=== PATIENT | male | born 1955 | race Hispanic/Latino ===

== ENCOUNTER 2017-02-12 14:10 | Inpatient (IN) | payer MEDICARE ==
[2017-02-12 14:10] VITALS: BMI 18.1
[2017-02-12] MEDS ORDERED: Sodium Chloride 0.9% 1,000 ML IV ONE (15:21)
--- NOTE | 2017-02-12 15:27 | C.PDOC ---
History Of Present Illness 61 yr old male with PMHx of chronic pancreatitis, presents to the ER for evaluation of abdominal pain which started few hours ago. Patient reports he has been seen multiple times for the same symptoms in the past. Patient states the pain is worse in epigastric area. Denies drinking alcohol, fever, chills, nausea, vomiting, diarrhea, constipation, dysuria, back pain, weakness or numbness. Time Seen by Provider: 02/12/17 15:07 Chief Complaint (Nursing): Chest Pain History/Exam Limitations: no limitations Onset/Duration Of Symptoms: Sudden Onset ([facility] STRIPPER few hrs ) Past Medical History Reviewed: Historical Data, Nursing Documentation, Vital Signs Vital Signs: Last Vital Signs Temp 97.8 F 02/12/17 21:07 Pulse 62 02/12/17 21:07 Resp 20 02/12/17 21:07 BP 124/72 02/12/17 21:07 Pulse Ox 95 02/12/17 21:07 - Medical History PMH: Anxiety, Depression, HTN, Pancreatitis (Recurrent), Chronic Pain (abdominal ) - [facility] Procedures INDIVID PSYCHOTHERAP NEC (11/12/12) INJECT/INFUSE NEC (07/12/14) INSERTION OF INFUSION DEV INTO SUP VENA CAVA, PERC APPROACH (07/12/16) OTHER GROUP THERAPY (11/12/12) Family History: States: No Known Family Hx - Social History Hx Alcohol Use: No Hx Substance Use: No (cocaine & marajuana) - Immunization History Hx Tetanus Toxoid Vaccination: No Hx Influenza Vaccination: Yes (2016) Hx Pneumococcal Vaccination: Yes (2016) Review Of Systems Except As Marked, All Systems Reviewed And Found Negative. Constitutional: Negative for: Fever, Chills Gastrointestinal: Positive for: Abdominal Pain (epigastric ). Negative for: Nausea, Vomiting, Diarrhea, Constipation Musculoskeletal: Negative for: Back Pain Neurological: Negative for: Weakness, Numbness Physical Exam - Physical Exam Appears: Non-toxic, No Acute Distress Skin: Warm, Dry, No Rash Head: Atraumatic, Normacephalic Oral Mucosa: Moist Chest: Symmetrical, No Tenderness Cardiovascular: Rhythm Regular, No Murmur Respiratory: Normal Breath Sounds, No Rales, No Rhonchi, No Stridor, No Wheezing Gastrointestinal/Abdominal: Soft, Tenderness (Mild epigastric ), No Guarding, No Rebound ED Course And Treatment - Laboratory Results Result Diagrams: 02/12/17 16:08 02/12/17 16:08 ECG: Interpreted By Me, Viewed By Me ECG Rhythm: Sinus Rhythm ECG Interpretation: Normal Interpretation Of ECG: No ST/T wave changes. Rate From EC (BPM) - CT Scan/US CT - Abd & Pelvis Other Rad Studies (CT/US): Read By Radiologist, Radiology Report Reviewed CT/US Interpretation: PROCEDURE: CT Abdomen and Pelvis with contrast. HISTORY : abd pain h/o of pancreatitis. COMPARISON: None available. TECHNIQUE: Contrast dose: 100 mL Omnipaque. Radiation dose: Total exam DLP = 313.29 mGy- cm. This CT exam was performed using one or more of the following dose reduction techniques: Automated exposure control, adjustment of the mA and/or kV according to patient size, and/or use of iterative reconstruction technique. FINDINGS: LOWER THORAX: No visible consolidation, pleural effusion, or pneumothorax. Marked distal esophageal wall thickening. LIVER: Hypoattenuation of the liver compatible with hepatic steatosis. GALLBLADDER AND BILE DUCTS: Unremarkable. PANCREAS: Several pancreatic calcifications particularly evident within the region of the pancreatic head/uncinate ; consistent with provided history of chronic pancreatitis. No peripancreatic fluid collection or inflammatory stranding evident. The pancreatic duct appears mildly prominent ; further evaluation with MRCP suggested if indicated. SPLEEN : Unremarkable. ADRENALS: Indeterminate 11 x 11 mm left adrenal gland nodule. 11 x 9 mm right adrenal gland nodule, indeterminate. KIDNEYS AND URETERS: The kidneys enhance symmetrically. No hydronephrosis or obstructing calculus identified. Too small to characterize 4 mm hypodensity, right midpole. VASCULATURE: Atherosclerotic calcifications of the aorta. No aortic aneurysm. BOWEL: Stomach is nondistended. Lack of oral contrast limits evaluation for bowel pathology. Bowel loops appear within normal limits of caliber without evidence of obstruction. APPENDIX: The appendix appears within normal limits of caliber. No secondary signs of acute appendicitis. PERITONEUM: No significant free fluid. No definite free air. LYMPH NODES: No bulky adenopathy identified. BLADDER: Markedly thick-walled under distended urinary bladder. REPRODUCTIVE: The prostate gland measures approximately 4.0 x 4.9 cm. BONES: Mild degenerative changes of the spine. OTHER FINDINGS: None. IMPRESSION: Several pancreatic calcifications particularly evident within the region of the pancreatic head/uncinate ; consistent with provided history of chronic pancreatitis. No peripancreatic fluid collection or inflammatory stranding evident. The pancreatic duct appears mildly prominent ; further evaluation with MRCP suggested if indicated. Bilateral 11 mm indeterminate adrenal gland nodules. Dedicated outpatient cross-sectional imaging may be considered for further characterization if indicated. Under distended but markedly thickened urinary bladder. Recommend correlation with urinalysis. Considerations include chronic outflow obstruction, infection, inflammatory or neoplastic process. Extent of wall thickening may be exaggerated by under distension. Follow-up as indicated. Enlarged prostate gland. Recommend correlation with PSA. Markedly thickened distal esophageal wall suboptimally evaluated by CT ; correlate clinically. Considerations include but not limited to infectious, inflammatory, or neoplastic etiologies. Follow-up as indicated. Too small to characterize 4 mm hypodensity, right renal midpole. Hepatic steatosis. Additional incidental findings as above. Medical Decision Making Medical Decision Making: PLAN: * CT - Abd & Pelvis * CXR * EKG * Alcohol Serum * CBC * CMP * Urinalysis * Toradol IVP * Sodium Chloride IV lipase eleaveted. h/o of chronic pancreatitis. pt accepted by dr cisse for admission. Disposition - Disposition Disposition: HOSPITALIZED Disposition Time: 07:00 Condition: GOOD - Clinical Impression Clinical Impression: Pancreatitis - Scribe Statement The provider has reviewed the documentation as recorded by the Jasper Hartmann Provider Attestation: All medical record entries made by the Jasper were at my direction and personally dictated by me. I have reviewed the chart and agree that the record accurately reflects my personal performance of the history, physical exam, medical decision making, and the department course for this patient. I have also personally directed, reviewed, and agree with the discharge instructions and disposition. Decision To Admit - Pt Status Changed To: Hospital Disposition Of: Inpatient - Admit Certification Admit to Inpatient:: After my assessment, the patient will require hospitalization for at least two midnights. This is because of the severity of symptoms shown, intensity of services needed, and/or the medical risk in this patient being treated as an outpatient. - InPatient: Physician Admission Certification: I certify that this patient requires 2 or more midnights of care for the following reason:: pancreatitis, needs bowel rest - . Bed Request Type: Regular Admitting Physician: Dorene Cisse Patient Diagnosis: Pancreatitis
--- NOTE | 2017-02-12 15:37 | RAD ---
HISTORY: abd pain COMPARISON: No prior. FINDINGS: LUNGS: No active pulmonary disease. PLEURA: No significant pleural effusion identified, no pneumothorax apparent. CARDIOVASCULAR: Normal. OSSEOUS STRUCTURES: No significant abnormalities. VISUALIZED UPPER ABDOMEN: Normal. OTHER FINDINGS: None. IMPRESSION: No active disease.
[2017-02-12] MEDS ORDERED: Sodium Chloride 0.9% 1,000 ML ONE (15:52)
[2017-02-12 16:15] LABS: BASO # 0.1 K/uL (0.0-0.2); EOS % 0.5 % (0.0-4.0); HEMATOCRIT 42.9 % (35.0-51.0); LYMPH # 1.8 K/uL (1.0-4.3); LYMPH % 21.5 % (20.0-40.0); MEAN CELL VOLUME 94.8 fL (80.0-94.0); MEAN CORPUSCULAR HEMOGLOBIN 32.7 pg (27.0-31.0); MEAN CORPUSCULAR HGB CONC 34.5 g/dL (33.0-37.0); MEAN PLATELET VOLUME 7.8 fL (7.2-11.7); MONO # 0.5 K/uL (0.0-0.8); MONO % 5.9 % (0.0-10.0); NRBC % 0.1 % (0.0-2.0); RED CELL DISTRIBUTION WIDTH 13.7 % (11.5-14.5); WHITE BLOOD COUNT 8.2 K/uL (4.8-10.8)
[2017-02-12 16:21] LABS: INR 1.1
[2017-02-12 16:22] LABS: CHLORIDE 105 mmol/L (98-107); POTASSIUM 4.7 mmol/L (3.6-5.2); SODIUM 143 mmol/L (132-148)
[2017-02-12 16:24] LABS: GFR AFRICAN-AMERICAN > 60
[2017-02-12 16:25] LABS: ALB/GLOB RATIO 1.6 (1.0-2.1); ALKALINE PHOSPHATASE 66 U/L (38-126); ALT/SGPT 27 U/L (21-72); AST/SGOT 28 U/L (17-59); BILIRUBIN,TOTAL 0.8 mg/dL (0.2-1.3); BLOOD UREA NITROGEN 17 mg/dL (9-20); CALCIUM 9.8 mg/dl (8.6-10.4); CARBON DIOXIDE 25 mmol/L (22-30); GLUCOSE,RANDOM 78 mg/dL (75-110); TOTAL PROTEIN 7.6 g/dL (6.3-8.3)
[2017-02-12 16:26] LABS: ALCOHOL SERUM < 10 mg/dl (0-10)
[2017-02-12 16:39] LABS: RBC URINE < 1 /hpf (0-3); URINE BACTERIA RARE (<OCC); URINE BILIRUBIN NEGATIVE (NEGATIVE); URINE BLOOD NEGATIVE (NEGATIVE); URINE COLOR Yellow (YELLOW); URINE GLUCOSE (UA) NORMAL (Normal); URINE KETONE NEGATIVE (NEGATIVE); URINE LEUKOCYTE ESTERASE NEG Leu/uL (Negative); URINE PROTEIN NEGATIVE (NEGATIVE); URINE UROBILINOGEN NORMAL mg/dL (0.2-1.0); WBC URINE 2 /hpf (0-5)
[2017-02-12] MEDS ORDERED: Iohexol 300 100 ML IJ ONE (16:54)
--- NOTE | 2017-02-12 18:09 | CT ---
PROCEDURE: CT Abdomen and Pelvis with contrast HISTORY: abd pain h/o of pancreatitis COMPARISON: None available. TECHNIQUE: Contrast dose: 100 mL Omnipaque Radiation dose: Total exam DLP = 313.29 mGy-cm. This CT exam was performed using one or more of the following dose reduction techniques: Automated exposure control, adjustment of the mA and/or kV according to patient size, and/or use of iterative reconstruction technique. FINDINGS: LOWER THORAX: No visible consolidation, pleural effusion, or pneumothorax. Marked distal esophageal wall thickening. LIVER: Hypoattenuation of the liver compatible with hepatic steatosis. GALLBLADDER AND BILE DUCTS: Unremarkable. PANCREAS: Several pancreatic calcifications particularly evident within the region of the pancreatic head/uncinate ; consistent with provided history of chronic pancreatitis. No peripancreatic fluid collection or inflammatory stranding evident. The pancreatic duct appears mildly prominent ; further evaluation with MRCP suggested if indicated. SPLEEN: Unremarkable. ADRENALS: Indeterminate 11 x 11 mm left adrenal gland nodule. 11 x 9 mm right adrenal gland nodule, indeterminate. KIDNEYS AND URETERS: The kidneys enhance symmetrically. No hydronephrosis or obstructing calculus identified. Too small to characterize 4 mm hypodensity, right midpole. VASCULATURE: Atherosclerotic calcifications of the aorta. No aortic aneurysm. BOWEL: Stomach is nondistended. Lack of oral contrast limits evaluation for bowel pathology. Bowel loops appear within normal limits of caliber without evidence of obstruction. APPENDIX: The appendix appears within normal limits of caliber. No secondary signs of acute appendicitis. PERITONEUM: No significant free fluid. No definite free air. LYMPH NODES: No bulky adenopathy identified. BLADDER: Markedly thick-walled under distended urinary bladder. REPRODUCTIVE: The prostate gland measures approximately 4.0 x 4.9 cm. BONES: Mild degenerative changes of the spine. OTHER FINDINGS: None. IMPRESSION: Several pancreatic calcifications particularly evident within the region of the pancreatic head/uncinate ; consistent with provided history of chronic pancreatitis. No peripancreatic fluid collection or inflammatory stranding evident. The pancreatic duct appears mildly prominent ; further evaluation with MRCP suggested if indicated. Bilateral 11 mm indeterminate adrenal gland nodules. Dedicated outpatient cross-sectional imaging may be considered for further characterization if indicated. Under distended but markedly thickened urinary bladder. Recommend correlation with urinalysis. Considerations include chronic outflow obstruction, infection, inflammatory or neoplastic process. Extent of wall thickening may be exaggerated by under distension. Follow-up as indicated. Enlarged prostate gland. Recommend correlation with PSA. Markedly thickened distal esophageal wall suboptimally evaluated by CT ; correlate clinically. Considerations include but not limited to infectious, inflammatory, or neoplastic etiologies. Follow-up as indicated. Too small to characterize 4 mm hypodensity, right renal midpole. Hepatic steatosis. Additional incidental findings as above.
[2017-02-12] MEDS ORDERED: Morphine 4 MG/ML VIAL ONE (18:23)
[2017-02-12] MEDS ORDERED: HYDROmorphone 0.5 mg/0.5 ml ISec IVP PRN (19:45)
[2017-02-12] MEDS ORDERED: Dextrose 5%/0.9% NS 1,000 ML IV ONE ×2 (19:47→19:54)
[2017-02-12] MEDS ORDERED: HYDROmorphone 0.5 mg/0.5 ml ISec IVP STA (19:49)
[2017-02-12] MEDS ORDERED: HYDROmorphone 0.5 mg/0.5 ml ISec ONE (19:53)
[2017-02-12] MEDS ORDERED: Pneumococcal 23-Valent Vaccine IM ONE (22:17)
[2017-02-12] MEDS ORDERED: Influenza Virus Vaccine (Afluria Inactive dont use ) IM ONE (22:17)
[2017-02-13] MEDS: HYDROmorphone 0.5 mg/0.5 ml ISec IVP PRN ×6 (00:37→20:43)
[2017-02-13] MEDS: Enoxaparin 30 mg Syringe SC SCH (09:51)
--- NOTE | 2017-02-13 10:44 | CP.PCM.CON ---
<Jose C Cartagena - Last Filed: 02/13/17 13:18> History of Present Illness - History of Present Illness History of Present Illness: PGY5 GI Fellow Consult Note Patient is a 61yo male with PMHx significant for EtOH abuse, polysubstance abuse , tobacco abuse, chronic pancreatitis who presented to the ED with abdominal pain. Pt states pain began suddenly yesterday without any obvious preceding cause. He vehemently denies any EtOH use recently and states his last drink was one year ago despite lab work showing EtOH in his system one month ago. Pain is improved overall since admission but was previously located in the epigastrium and radiated to both flanks. Denies any change in bowel habits, weight loss, nausea, vomiting, fever, chills. Tolerated full tray of breakfast this morning without difficulty. States he is avoiding fried, fatty foods. Patient had not followed up as an outpatient as previously requested. PMHx: See HPI PSHx: Denies any prior surgeries FHx: Discussed with patient and denies any significant family history Social: Current daily tobacco use, prior EtOH and polysubstance abuse Endo: Admits to prior endoscopy/colonoscopy at [facility]SH but cannot provide reports/ findings/details of procedures Review of Systems - Constitutional Constitutional: absent: Anorexia, Chills, Fever, Weight Loss - EENT Eyes: absent: Change in Vision Nose/Mouth/Throat: absent: Sore Throat - Cardiovascular Cardiovascular: absent: Chest Pain, Dyspnea, Edema - Respiratory Respiratory: absent: Cough, Dyspnea, Excessive Mucous Production - Gastrointestinal Gastrointestinal: Abdominal Pain, Nausea. absent: Bloating, Change in Bowel Habits, Change in Stool Character, Constipation, Cramping, Diarrhea, Dyspepsia, Dysphagia, Hematemesis, Hematochezia, Melena, Vomiting - Genitourinary Genitourinary: absent: Dysuria, Urinary Frequency, Urinary Urgency - Musculoskeletal Musculoskeletal: absent: Back Pain, Neck Pain - Integumentary Integumentary: absent: New Lesions, Rash - Neurological Neurological: absent: Dizziness, Numbness, Focal Weakness - Psychiatric Psychiatric: absent: Anxiety, Depression - Endocrine Endocrine: absent: Polydipsia, Polyphagia, Polyuria - Hematologic/Lymphatic Hematologic: absent: Easy Bleeding, Easy Bruising, Lymphadenopathy Past Patient History - Infectious Disease Hx of Infectious Diseases: None - Past Medical History & Family History Past Medical History?: Yes - Past Social History Smoking Status: Heavy Smoker > 10 Cigarettes Daily - CARDIAC Hx Hypertension: Yes - PULMONARY Hx Respiratory Disorders: No - NEUROLOGICAL Hx Neurological Disorder: No - HEENT Hx HEENT Problems: No - RENAL Hx Chronic Kidney Disease: No - ENDOCRINE/METABOLIC Hx Endocrine Disorders: No - HEMATOLOGICAL/ONCOLOGICAL Hx Human Immunodeficiency Virus (HIV): No - INTEGUMENTARY Hx Dermatological Problems: No - MUSCULOSKELETAL/RHEUMATOLOGICAL Hx Falls: Yes - GASTROINTESTINAL Hx Pancreatitis: Yes (Recurrent) - GENITOURINARY/GYNECOLOGICAL Hx Genitourinary Disorders: No - PSYCHIATRIC Hx Anxiety: Yes Hx Depression: Yes Hx Substance Use: No (cocaine & marajuana) - SURGICAL HISTORY Hx Surgeries: No - ANESTHESIA Hx Anesthesia: No Hx Anesthesia Reactions: No Hx Malignant Hyperthermia: No Meds Allergies/Adverse Reactions: Allergies Allergy/AdvReac Type Severity Reaction Status Date / Time No Known Allergies Allergy Verified 02/12/17 14:41 - Medications Medications: Current Medications Alprazolam (Xanax) 0.5 mg PO TID [facility] Last Admin: 02/13/17 09:51 Dose: 0.5 mg Enoxaparin Sodium (Lovenox) 30 mg SC DAILY [facility] Last Admin: 02/13/17 09:51 Dose: 30 mg Hydromorphone HCl (Dilaudid) 0.5 mg IVP Q4H PRN PRN Reason: Pain, severe (8-10) Last Admin: 02/13/17 08:30 Dose: 0.5 mg Pantoprazole Sodium (Protonix Inj) 40 mg IVP DAILY [facility] Last Admin: 02/13/17 09:52 Dose: 40 mg Paroxetine HCl (Paxil) 40 mg PO DAILY [facility] Last Admin: 02/13/17 09:51 Dose: 40 mg Physical Exam - Constitutional Appears: Non-toxic, No Acute Distress - Eye Exam Eye Exam: EOMI, PERRL - ENT Exam ENT Exam: Mucous Membranes Moist - Respiratory Exam Respiratory Exam: Clear to Auscultation Bilateral. absent: Rales, Rhonchi, Wheezes - Cardiovascular Exam Cardiovascular Exam: RRR, +S1, +S2 - GI/Abdominal Exam GI & Abdominal Exam: Normal Bowel Sounds, Soft, Tenderness (mild epigastric). absent: Distended, Firm, Guarding, Rigid - Extremities Exam Extremities exam: Positive for: normal inspection. Negative for: pedal edema - Neurological Exam Neurological exam: Alert, Oriented x3 - Psychiatric Exam Psychiatric exam: Normal Affect, Normal Mood - Skin Skin Exam: Dry, Warm Results - Vital Signs Recent Vital Signs: Last Vital Signs Temp 97.5 F L 02/13/17 07:55 Pulse 61 02/13/17 07:55 Resp 20 02/13/17 07:55 BP 101/64 02/13/17 07:55 Pulse Ox 97 02/13/17 07:55 - Labs Result Diagrams: 02/12/17 16:08 02/12/17 16:08 Labs: Laboratory Results - last 24 hr 02/12/17 02/12/17 02/12/17 16:08 16:08 16:08 WBC 8.2 RBC 4.53 Hgb 14.8 Hct 42.9 MCV 94.8 H MCH 32.7 H MCHC 34.5 RDW 13.7 Plt Count 216 MPV 7.8 Neut % (Auto) 71.1 Lymph % (Auto) 21.5 [place] % (Auto) 5.9 Eos % (Auto) 0.5 Baso % (Auto) 1.0 Neut # 5.8 Lymph # 1.8 [place] # 0.5 Eos # 0.0 Baso # 0.1 PT 12.2 INR 1.1 APTT 30 Sodium 143 Potassium 4.7 Chloride 105 Carbon Dioxide 25 Anion Gap 17 BUN 17 Creatinine 0.8 Est GFR ( Amer) > 60 Est GFR (Non-Af Amer) > 60 Random Glucose 78 Calcium 9.8 Total Bilirubin 0.8 AST 28 ALT 27 Alkaline Phosphatase 66 Total Protein 7.6 Albumin 4.7 Globulin 3.0 Albumin/Globulin Ratio 1.6 Lipase 569 H Urine Color Urine Clarity Urine pH Ur Specific [place] Urine Protein Urine Glucose (UA) Urine Ketones Urine Blood Urine Nitrate Urine Bilirubin Urine Urobilinogen Ur Leukocyte Esterase Urine WBC (Auto) Urine RBC (Auto) Urine Bacteria Urine Sperm (Auto) Alcohol, Quantitative < 10 02/12/17 16:15 WBC RBC Hgb Hct MCV MCH MCHC RDW Plt Count MPV Neut % (Auto) Lymph % (Auto) [place] % (Auto) Eos % (Auto) Baso % (Auto) Neut # Lymph # [place] # Eos # Baso # PT INR APTT Sodium Potassium Chloride Carbon Dioxide Anion Gap BUN Creatinine Est GFR ( Amer) Est GFR (Non-Af Amer) Random Glucose Calcium Total Bilirubin AST ALT Alkaline Phosphatase Total Protein Albumin Globulin Albumin/Globulin Ratio Lipase Urine Color Yellow Urine Clarity Clear Urine pH 5.0 Ur Specific [place] 1.011 Urine Protein Negative Urine Glucose (UA) Normal Urine Ketones Negative Urine Blood Negative Urine Nitrate Negative Urine Bilirubin Negative Urine Urobilinogen Normal Ur Leukocyte Esterase Neg Urine WBC (Auto) 2 Urine RBC (Auto) < 1 Urine Bacteria Rare Urine Sperm (Auto) Rare H Alcohol, Quantitative Assessment & Plan - Assessment and Plan (Free Text) Assessment: Patient is a 61yo male with PMHx significant for EtOH abuse, polysubstance abuse , tobacco abuse, chronic pancreatitis who presented to the ED with abdominal pain. -Chronic pancreatitis -Current tobacco use -Hepatic steatosis -Abnormal imaging of the GI tract on CT -Opioid dependence with pain seeking behavior -H/O polysubstance abuse -H/O EtOH abuse Plan: -CT IV contrast reviewed - gastric and esophageal thickening may be noted in absence of PO contrast; pt denies any complaints at present -Consider EGD given above findings, pt currently refusing but will discuss again and make NPO past MN in anticipation of procedure tomorrow if agreeable -No clinical evidence of cirrhosis despite prior EtOH abuse history -Encourage smoking cessation -Patient tolerating full diet -Start Pancreaze 7 tabs PO with meals - Date & Time Date: 02/13/17 Time: 07:30 <Amandeep Shaikh - Last Filed: 02/13/17 15:01> Meds - Medications Medications: Current Medications Alprazolam (Xanax) 0.5 mg PO TID [facility] Last Admin: 02/13/17 14:00 Dose: 0.5 mg Enoxaparin Sodium (Lovenox) 30 mg SC DAILY [facility] Last Admin: 02/13/17 09:51 Dose: 30 mg Hydromorphone HCl (Dilaudid) 0.5 mg IVP Q4H PRN PRN Reason: Pain, severe (8-10) Last Admin: 02/13/17 12:16 Dose: 0.5 mg Pantoprazole Sodium (Protonix Inj) 40 mg IVP DAILY [facility] Last Admin: 02/13/17 09:52 Dose: 40 mg Paroxetine HCl (Paxil) 40 mg PO DAILY [facility] Last Admin: 02/13/17 09:51 Dose: 40 mg Results - Vital Signs Recent Vital Signs: Last Vital Signs Temp 97.5 F L 02/13/17 07:55 Pulse 61 02/13/17 07:55 Resp 20 02/13/17 07:55 BP 101/64 02/13/17 07:55 Pulse Ox 97 02/13/17 07:55 - Labs Result Diagrams: 02/12/17 16:08 02/13/17 14:04 Labs: Laboratory Results - last 24 hr 02/12/17 02/12/17 02/12/17 16:08 16:08 16:08 WBC 8.2 RBC 4.53 Hgb 14.8 Hct 42.9 MCV 94.8 H MCH 32.7 H MCHC 34.5 RDW 13.7 Plt Count 216 MPV 7.8 Neut % (Auto) 71.1 Lymph % (Auto) 21.5 [place] % (Auto) 5.9 Eos % (Auto) 0.5 Baso % (Auto) 1.0 Neut # 5.8 Lymph # 1.8 [place] # 0.5 Eos # 0.0 Baso # 0.1 PT 12.2 INR 1.1 APTT 30 Sodium 143 Potassium 4.7 Chloride 105 Carbon Dioxide 25 Anion Gap 17 BUN 17 Creatinine 0.8 Est GFR ( Amer) > 60 Est GFR (Non-Af Amer) > 60 Random Glucose 78 Calcium 9.8 Total Bilirubin 0.8 AST 28 ALT 27 Alkaline Phosphatase 66 Total Protein 7.6 Albumin 4.7 Globulin 3.0 Albumin/Globulin Ratio 1.6 Lipase 569 H Urine Color Urine Clarity Urine pH Ur Specific [place] Urine Protein Urine Glucose (UA) Urine Ketones Urine Blood Urine Nitrate Urine Bilirubin Urine Urobilinogen Ur Leukocyte Esterase Urine WBC (Auto) Urine RBC (Auto) Urine Bacteria Urine Sperm (Auto) Alcohol, Quantitative < 10 02/12/17 02/13/17 16:15 14:04 WBC RBC Hgb Hct MCV MCH MCHC RDW Plt Count MPV Neut % (Auto) Lymph % (Auto) [place] % (Auto) Eos % (Auto) Baso % (Auto) Neut # Lymph # [place] # Eos # Baso # PT INR APTT Sodium 140 Potassium 4.5 Chloride 104 Carbon Dioxide 23 Anion Gap 18 BUN 23 H Creatinine 0.9 Est GFR ( Amer) > 60 Est GFR (Non-Af Amer) > 60 Random Glucose 85 Calcium 8.4 L Total Bilirubin AST ALT Alkaline Phosphatase Total Protein Albumin Globulin Albumin/Globulin Ratio Lipase 243 Urine Color Yellow Urine Clarity Clear Urine pH 5.0 Ur Specific [place] 1.011 Urine Protein Negative Urine Glucose (UA) Normal Urine Ketones Negative Urine Blood Negative Urine Nitrate Negative Urine Bilirubin Negative Urine Urobilinogen Normal Ur Leukocyte Esterase Neg Urine WBC (Auto) 2 Urine RBC (Auto) < 1 Urine Bacteria Rare Urine Sperm (Auto) Rare H Alcohol, Quantitative Attending/Attestation - Attestation I have personally seen and examined this patient.: Yes I have fully participated in the care of the patient.: Yes I have reviewed all pertinent clinical information: Yes Notes (Text): 02/13/17 14:59 61 year old male with h/o EtOH abuse, chronic pancreatitis a/w abdominal pain. 1. Chronic pancreatitis 2. Abnormal CT scan of GI tract Plan: -recommend low fat diet -start pancreatic enzymes with meals and PPI daily -smoking cessation advised -elective endoscopy recommended -elective endoscopic ultrasound recommended -ok for discharge from gi perspective
[2017-02-13] MEDS: LIPASE/PROTEASE/AMYLASE 4,200 U ECC PO SCH ×2 (12:13→17:09)
[2017-02-13 14:33] LABS: CHLORIDE 104 mmol/L (98-107)
[2017-02-13 14:34] LABS: POTASSIUM 4.5 mmol/L (3.6-5.2); SODIUM 140 mmol/L (132-148)
[2017-02-13 14:36] LABS: GFR AFRICAN-AMERICAN > 60
[2017-02-13 14:37] LABS: BLOOD UREA NITROGEN 23 mg/dL (9-20); CALCIUM 8.4 mg/dl (8.6-10.4); CARBON DIOXIDE 23 mmol/L (22-30); GLUCOSE,RANDOM 85 mg/dL (75-110)
[2017-02-14] MEDS: HYDROmorphone 0.5 mg/0.5 ml ISec IVP PRN ×6 (00:37→22:11)
--- NOTE | 2017-02-14 02:59 | HP ---
The patient is a 61-year-old male. CHIEF COMPLAINT: Abdominal pain. HISTORY OF PRESENT ILLNESS: The patient is a 61-year-old male with past medical history of chronic pancreatitis, came to the emergency room of [facility] for abdominal pain evaluation that started few hours ago. The patient reports that he multiple times came to the emergency for same symptoms in the past. Pain is worse in the epigastric area. Denies drinking alcohol, fever or chills, nausea, vomiting, diarrhea, constipation, dysuria, back pain, weakness, or numbness. Notes the pain was sudden onset. No relieving or exacerbating factors. PAST MEDICAL HISTORY: Anxiety, depression, hypertension, recurrent pancreatitis, chronic abdominal pain. FAMILY HISTORY: Father and mother, noncontributory. HABITS: According to him, no alcohol use, substance cocaine and marijuana abuse. Smoking, yes. ALLERGIES: THE PATIENT IS NOT ALLERGIC WITH ANY MEDICATIONS. HOME MEDICATIONS: Reviewed by me. REVIEW OF SYSTEMS: The patient was seen and examined on the bedside, looking comfortable. No nausea, vomiting, or diarrhea. No hematuria or hematochezia. No swelling of the legs. Epigastric abdominal pain. No fever. No chills. PHYSICAL EXAMINATION VITAL SIGNS: Temperature 98.1, pulse 56, blood pressure 112/67, and respiratory rate 20. HEENT: Head, normocephalic and atraumatic. Eyes, PERRLA. Extraocular muscles intact. Conjunctivae clear. Nose patent. NECK: Supple. No carotid bruits. No JVD or thyromegaly. CHEST: Bilaterally symmetrical. HEART: S1 and S2 positive. LUNGS: Clear to auscultation. ABDOMEN: Soft. Bowel sounds positive. No organomegaly. EXTREMITIES: No edema. No cyanosis. NEUROLOGICAL: The patient is awake and alert. Moving all 4 extremities. No focal deficits. LABORATORY DATA: White blood cell 8.2, hemoglobin 14.8, hematocrit 42.9, and platelets 216. Sodium 140, potassium 4.5, BUN 23, creatinine 0.9, calcium 8.4, lipase noted ASSESSMENT AND PLAN: The patient is a 61-year-old male with hypocalcemia, pancreatitis, lipase is high but trending down. Alcohol level is zero. Seen by Dr. Amandeep Shaikh. The patient has a history of significant ethanol abuse, polysubstance abuse, tobacco abuse according to old records. Chronic pancreatitis, came with abdominal pain, it is acute on chronic, gastroesophageal reflux disease, chronic tobacco use, hepatic steatosis, abnormal imaging of gastrointestinal tract on CT, opioid dependence with pain seeking behavior, history of polysubstance abuse. CT with IV contrast, gastritis noted. Consider EGD given above findings. The patient is currently refusing, but we will discuss again and made n.p.o. past midnight for procedure tomorrow if he is agreeable as per GI. No clinical evidence of cirrhosis despite prior ethanol abuse. Encouraged to quit smoking. The patient is tolerating full diet. Started Pancrease 7 tablets p.o. with meals. Appreciated Dr. Neel Bernstein's input. Gastrointestinal and deep venous thrombosis prophylaxis. Repeat labs. We will follow up. Dorene Cisse MD MTDVioleta
[2017-02-14] MEDS: LIPASE/PROTEASE/AMYLASE 4,200 U ECC PO SCH ×3 (08:00→16:30)
[2017-02-14] MEDS: Enoxaparin 30 mg Syringe SC SCH (10:00)
[2017-02-14 11:40] LABS: HEMATOCRIT 40.3 % (35.0-51.0); MEAN CELL VOLUME 95.4 fL (80.0-94.0); MEAN CORPUSCULAR HEMOGLOBIN 32.8 pg (27.0-31.0); MEAN CORPUSCULAR HGB CONC 34.3 g/dL (33.0-37.0); MEAN PLATELET VOLUME 8.5 fL (7.2-11.7); RED CELL DISTRIBUTION WIDTH 13.7 % (11.5-14.5); WHITE BLOOD COUNT 5.5 K/uL (4.8-10.8)
[2017-02-14 12:02] LABS: CHLORIDE 103 mmol/L (98-107); POTASSIUM 4.8 mmol/L (3.6-5.2); SODIUM 145 mmol/L (132-148)
[2017-02-14 12:04] LABS: AMYLASE 179 U/L (30-110); CARBON DIOXIDE 28 mmol/L (22-30); GFR AFRICAN-AMERICAN > 60
[2017-02-14 12:05] LABS: BLOOD UREA NITROGEN 17 mg/dL (9-20); CALCIUM 9.4 mg/dl (8.6-10.4); CHOLESTEROL 138 mg/dL (0-199); GLUCOSE,RANDOM 73 mg/dL (75-110)
[2017-02-14] MEDS ORDERED: Propofol 10 mg/ml Inj (20 ML) ONE (12:06)
[2017-02-14 12:07] LABS: IRON 37 ug/dL (49-181)
[2017-02-14 12:37] LABS: THYROID STIMULATING HORMONE 1.68 mIU/L (0.46-4.68)
--- NOTE | 2017-02-14 12:38 | CP.PCM.PN ---
Subjective - Date & Time of Evaluation Date of Evaluation: 02/14/17 Time of Evaluation: 12:35 - Subjective Subjective: Patient seen and examined, resting in bed comfortably. He continues to endorse epigastric abdominal pain but otherwise denies nausea, vomiting, diarrhea, fever /chills. Asking to have his diet advanced and eager to go home. s/p EGD today showing duodenitis, multiple shallow antral ulcers, gastritis. Objective - Vital Signs/Intake and Output Vital Signs (last 24 hours): Temp Pulse Resp BP Pulse Ox 97.6 F 60 20 118/66 96 02/14/17 07:00 02/14/17 07:00 02/14/17 07:00 02/14/17 07:00 02/14/17 07:00 Intake and Output: 02/14/17 02/14/17 06:59 18:59 Intake Total 320 Balance 320 - Medications Medications: Current Medications Alprazolam (Xanax) 0.5 mg PO TID [facility] Last Admin: 02/14/17 10:00 Dose: Not Given Enoxaparin Sodium (Lovenox) 30 mg SC DAILY [facility] Last Admin: 02/14/17 10:00 Dose: Not Given Hydromorphone HCl (Dilaudid) 0.5 mg IVP Q4H PRN PRN Reason: Pain, severe (8-10) Last Admin: 02/14/17 08:31 Dose: 0.5 mg Pantoprazole Sodium (Protonix Ec Tab) 40 mg PO DAILY [facility] Paroxetine HCl (Paxil) 40 mg PO DAILY [facility] Last Admin: 02/14/17 09:59 Dose: Not Given - Labs Labs: 02/14/17 11:27 02/14/17 11:27 PT 12.2 SECONDS (9.7-12.2) 02/12/17 16:08 INR 1.1 02/12/17 16:08 APTT 30 SECONDS (21-34) 02/12/17 16:08 Assessment and Plan - Assessment and Plan (Free Text) Assessment: Polysubstance abuse Chronic pancreatitis Abdominal pain - s/p EGD showing duodenitis, multiple shallow antral ulcers, gastritis, irregular GEJ Plan: - Advance diet to low fat as tolerated - Continue with PPI therapy - Follow up biopsy results from EGD - Continue with pancreatic enzyme supplementation therapy - Suggest additional outpatient GI follow up of chronic pancreatitis, dilated PD. No further planned intervention, from GI standpoint ok to discharge patient home. Will sign off case, please reconsult as necessary, thank you.
[2017-02-14 13:12] LABS: FOLATE 9.1 ng/mL
[2017-02-14 16:58] VITALS: RESP 20
[2017-02-14] MEDS: Lactated Ringer's 500 ML IV SCH (19:25)
[2017-02-15] MEDS: HYDROmorphone 0.5 mg/0.5 ml ISec IVP PRN ×2 (02:05→06:05)
[2017-02-15] MEDS: Lactated Ringer's 500 ML IV SCH (02:07)
--- NOTE | 2017-02-15 07:00 | PN ---
DATE: SUBJECTIVE: The patient is a 61 years old male. The patient was seen and examined at the bedside in the endoscopy department, looking comfortable, was ready to go for upper endoscopy. Abdominal pain is getting better, but still there. No nausea, vomiting, diarrhea. No fever. No chills. Hungry, wants to advance diet and wants to go home. PHYSICAL EXAMINATION: VITAL SIGNS: Temperature 97.6, pulse 60, respiratory rate 20, blood pressure 118/56, pulse oxymetry 96%. HEENT: Head, normocephalic and atraumatic. Eyes, PERRLA. Extraocular muscle intact. Conjunctivae clear. Nose patent. Mucous membrane moist. NECK: Supple. No carotid bruits. No JVD or thyromegaly. CHEST: Bilaterally symmetrical. HEART: S1 and S2 positive. LUNGS: Clear to auscultation. ABDOMEN: Soft. Bowel sounds positive. No organomegaly. EXTREMITIES: No edema. No cyanosis. NEUROLOGICAL: The patient is awake and alert. Moving all 4 extremities. No focal deficits. MEDICATIONS: Xanax, Lovenox, Dilaudid, Protonix. LABORATORY DATA: White blood cells 5.5, hemoglobin 13.8, hematocrit noted platelets 189. Sodium 145, potassium 4.8, BUN 70, creatinine 0.8. Glucose 73. ASSESSMENT AND PLAN: The patient is a 61 years old male with history of polysubstance abuse, chronic pancreatitis, came with acute on chronic pancreatitis, abdominal pain. Small-caliber esophagogastroduodenoscopy showing duodenitis, multiple shallow antral ulcers, gastritis, irregular jejunum. Plan is advance diet to low fat as tolerated. Continue proton pump inhibitor. Follow up with biopsy results from esophagogastroduodenoscopy. Continue pancreatic enzyme supplementation therapy. The patient will need gastroenterology followup for chronic pancreatitis, dilated pancreatic duct. Discussion done with Dr. Sourav Narvaez. Abdominopelvic ultrasound was done, results reviewed, we will follow up. Dorene Cisse MD LUIS FELIPE
[2017-02-15 07:13] VITALS: BP 123/76; PULSE 70; TEMP 98; O2SAT 97
[2017-02-15] MEDS: LIPASE/PROTEASE/AMYLASE 4,200 U ECC PO SCH (07:53)
[2017-02-15] MEDS ORDERED: Pantoprazole 40 mg EC Tab PO SCH (10:00)
--- NOTE | 2017-02-15 19:52 | CARD ---
APPROVED REPORT EKG Measurement Heart [id number] <Conclusion> Normal sinus rhythm Right atrial enlargement Borderline ECG
--- NOTE | 2017-02-16 16:34 | DS ---
Left against medical advice on 02/14/2017 CHIEF COMPLAINT: Abdominal pain. HISTORY OF PRESENT ILLNESS: Mr. Curtis Casillas is 61 years old male last known to me, I see him on-call, has past medical history of chronic pancreatitis, and came to the emergency room of [facility] with abdominal pain started few hours ago. The patient reports that he has multiple times visit to the emergency room with the same abdominal pain. Pain is worse in the epigastric area. Denies drinking alcohol, fever, chills, nausea, vomiting, diarrhea, constipation, or dysuria. We admitted the patient, did CAT scan of abdomen and pelvis, chest x-ray, seen by Dr. Sourav Narvaez, GI, went for upper endoscopy, plan was to offer food, plan was to progress food slowly as tolerated, but the patient signed against medical advice. He wants to follow up with his own primary care physician, but the patient advised do not drink, urge to quit drinking and will go back and follow up with GI and primary care physician. PAST MEDICAL HISTORY: Anxiety, depression, hypertension, recurrent pancreatitis, and chronic abdominal pain. FAMILY HISTORY: Father and mother noncontributory. HABITS: As per the patient, no alcohol abuse, but as per documentation, states history of substance abuse, cocaine, and marijuana. Smoking, yes. ALLERGIES: THE PATIENT IS NOT ALLERGIC WITH ANY MEDICATIONS. HOME MEDICATIONS: Reviewed by me. REVIEW OF SYSTEMS: The patient was seen and examined at the bedside in the morning, looking comfortable. No nausea, vomiting, or diarrhea. Abdominal pain is better, not gone yet, and taking food. PHYSICAL EXAMINATION: VITAL SIGNS: Temperature 98, pulse 70, blood pressure 123/76, and respiratory rate 20. HEENT: Head; normocephalic and atraumatic. Eyes; PERRLA. Extraocular muscles intact. Conjunctivae clear. Nose patent. Mucous membrane moist. NECK: Supple. No carotid bruits, JVD, or thyromegaly. CHEST: Bilaterally symmetrical. HEART: S1 and S2 positive. LUNGS: Clear to auscultation. ABDOMEN: Soft. Bowel sounds positive. No organomegaly. EXTREMITIES: No edema. No cyanosis. NEUROLOGICAL: The patient is awake and alert. Moving all 4 extremities. No focal deficits. LABORATORY DATA: White blood cell 5.5, hemoglobin 13.8, hematocrit 40.3, and platelets 189. Sodium 145, potassium 4.8, BUN 17, and creatinine 0.8. Glucose 73. Iron 37. ASSESSMENT AND PLAN: Mr. Curtis Casillas is 61 years old male admitted for acute on chronic pancreatitis, history of polysubstance abuse, esophageal endoscopy done showing duodenitis, multiple small antral ulcers, gastritis, and irregular jejunum. Diet advanced as tolerated. Continue proton pump inhibitor, biopsy sent, and has to followup. Continue pancreatic enzyme supplementation as per GI. The patient need to followup on acute on chronic pancreatitis and dilated pancreatic duct. The patient was seen by GI. Plan was to advance diet slowly and see the effect until the patient's abdominal pain is gone, but he is decided to go against medical advice, he left, he was educated, and follow up with his primary care physician and [facility], urge to quit addiction and other substances. Dorene Cisse MD
== END 2017-02-15 08:25 | disposition left against medical advice (07) | DRG 439 ==
LOC: C.ER 14:10 → C.9E 18:17 → C.3T 19:52
PROVIDERS: ADMIT Internal Medicine; ATTEND Internal Medicine
PROC: 0DB98ZX Excision of Duodenum, Via Natural or Artificial Opening Endoscopic, Diagnostic (ICD-10-PCS; 2017-02-14)
PROC: 0DB68ZX Excision of Stomach, Via Natural or Artificial Opening Endoscopic, Diagnostic (ICD-10-PCS; principal; 2017-02-14 12:23)
DX: K85.90 Acute pancreatitis without necrosis or infection, unspecified (principal); F11.20 Opioid dependence, uncomplicated; K76.0 Fatty (change of) liver, not elsewhere classified; K25.7 Chronic gastric ulcer without hemorrhage or perforation; I10 Essential (primary) hypertension; E83.51 Hypocalcemia; F17.200 Nicotine dependence, unspecified, uncomplicated; K21.0 Gastro-esophageal reflux disease with esophagitis; K29.80 Duodenitis without bleeding; K29.70 Gastritis, unspecified, without bleeding; K86.1 Other chronic pancreatitis; F10.10 Alcohol abuse, uncomplicated

== ENCOUNTER 2017-02-19 19:09 | Emergency (ER) | payer MEDICARE ==
[2017-02-19 19:10] VITALS: BMI 18.1
[2017-02-19 19:37] VITALS: TEMP 98.4
[2017-02-19 19:57] VITALS: RESP 18
[2017-02-19] MEDS ORDERED: Sodium Chloride 0.9% 1,000 ML IV ONE (20:13)
--- NOTE | 2017-02-19 20:13 | C.PDOC ---
History Of Present Illness 61 year old male, with a history of chronic pancreatitis, major depression, and anxiety, presents to the ED with complaints of persistent diffuse abdominal pain that radiates into his chest. Patient states he was seen in ED last week but was "paranoid I would in a hospital so I left and I shouldn't have." Patient notes pain has worsened and has associated vomiting and diarrhea. He stopped drinking alcohol one year ago but continues to smoke cigarettes. Patient denies groin pain, hematemesis, bright red blood per rectum, or dysuria. Chief Complaint (Nursing): Chest Pain History Per: Patient History/Exam Limitations: no limitations Onset/Duration Of Symptoms: Persistent Current Symptoms Are (Timing): Still Present Location Of Pain/Discomfort: Diffuse Radiation Of Pain To:: None Quality Of Discomfort: "Pain" Associated Symptoms: Vomiting, Diarrhea. denies: Fever, Chills Exacerbating Factors: None Alleviating Factors: None Recent travel outside of the [place]: No Past Medical History Reviewed: Historical Data, Nursing Documentation, Vital Signs Vital Signs: Last Vital Signs Temp 98.4 F 02/19/17 22:26 Pulse 85 02/19/17 22:26 Resp 18 02/19/17 22:26 BP 126/79 02/19/17 22:26 Pulse Ox 97 02/19/17 22:26 - Medical History PMH: No Chronic Diseases, Anxiety, Depression, HTN, Pancreatitis (Recurrent), Chronic Pain (abdominal) Surgical History: No Surg Hx - [facility] Procedures EXCISION OF DUODENUM, ENDO, DIAGN (02/12/17) EXCISION OF STOMACH, ENDO, DIAGN (02/12/17) INDIVID PSYCHOTHERAP NEC (11/12/12) INJECT/INFUSE NEC (07/12/14) INSERTION OF INFUSION DEV INTO SUP VENA CAVA, PERC APPROACH (07/12/16) OTHER GROUP THERAPY (11/12/12) Family History: States: Unknown Family Hx - Social History Hx Alcohol Use: No (STOPPED OVER A YEAR AGO) Hx Substance Use: No (cocaine & marajuana) - Immunization History Hx Tetanus Toxoid Vaccination: No Hx Influenza Vaccination: Yes (2015) Hx Pneumococcal Vaccination: Yes (2015) Review Of Systems Constitutional: Negative for: Fever, Chills Cardiovascular: Positive for: Chest Pain (radiating from abdominal pain ) Respiratory: Negative for: Shortness of Breath Gastrointestinal: Positive for: Vomiting, Abdominal Pain, Diarrhea. Negative for: Hematochezia, Hematemesis Genitourinary: Negative for: Dysuria, Hematuria Physical Exam - Physical Exam Appears: Non-toxic, In Acute Distress (in moderate distress due to pain ), Other (aneatic with flush facees) Skin: Warm, Dry Head: Atraumatic, Normacephalic Eye(s): bilateral: Normal Inspection Oral Mucosa: Moist Neck: Supple Chest: Symmetrical, No Deformity Cardiovascular: Rhythm Regular, No Murmur Respiratory: No Rales, No Rhonchi, No Wheezing, Other (clear to auscultation bilaterally ) Gastrointestinal/Abdominal: Soft, Tenderness (diffuse abdominal pain, worse on the left side than the right ), No Distention, No Guarding, No Rebound, No Hernia Male Genital: Other (normal external genitalia ) Extremity: Normal ROM, No Tenderness, Other (no peripheral edema ) Pulses: Left Dorsalis Pedis: Normal (2+), Right Dorsalis Pedis: Normal (2+) ED Course And Treatment - Laboratory Results Result Diagrams: 02/19/17 20:45 02/19/17 20:45 Lab Interpretation: Normal ECG: Interpreted By Me ECG Rhythm: Sinus Rhythm ECG Interpretation: Normal Interpretation Of ECG: ekg shows NSR at 83bpm,intervals are wnl,no ectopy,st segs wnl T waves wnl.No old EKGs for comparison O2 Sat by Pulse Oximetry: 96 (RA) Progress Note: CXR and blood work were ordered. Patient was given morphine, zofran, and IV fluids. Medical Decision Making Medical Decision Making: Pt with hx chronic pancreatitis now with uinremarkable exam and labs.Pt is stable for discharge Disposition - Disposition Disposition: HOME/ ROUTINE Disposition Time: 22:43 Condition: GOOD Additional Instructions: return for worsening pain,fever,intractable vomiting Prescriptions: oxyCODONE/Acetaminophen [Percocet 5/325 mg Tab] 1 ea PO QID #10 tab Instructions: Abdominal Pain (ED) Forms: [facility] (Lithuanian), General Discharge Instructions Print Language: PAKISTANI - Clinical Impression Clinical Impression: Abdominal pain - Scribe Statement The provider has reviewed the documentation as recorded by the Scribe Hawa Leung All medical record entries made by the Scribe were at my direction and personally dictated by me. I have reviewed the chart and agree that the record accurately reflects my personal performance of the history, physical exam, medical decision making, and the department course for this patient. I have also personally directed, reviewed, and agree with the discharge instructions and disposition.
[2017-02-19] MEDS ORDERED: Sodium Chloride 0.9% 1,000 ML ONE (20:46)
[2017-02-19] MEDS ORDERED: Morphine 4 MG/ML VIAL ONE (20:47)
[2017-02-19 20:52] LABS: BASO # 0.1 K/uL (0.0-0.2); BASO % 0.9 % (0.0-2.0); EOS # 0.1 K/uL (0.0-0.7); EOS % 1.2 % (0.0-4.0); HEMATOCRIT 39.8 % (35.0-51.0); LYMPH # 1.9 K/uL (1.0-4.3); LYMPH % 26.1 % (20.0-40.0); MEAN CELL VOLUME 95.7 fL (80.0-94.0); MEAN CORPUSCULAR HEMOGLOBIN 32.9 pg (27.0-31.0); MEAN CORPUSCULAR HGB CONC 34.4 g/dL (33.0-37.0); MONO # 0.7 K/uL (0.0-0.8); MONO % 9.9 % (0.0-10.0); NRBC % 0.1 % (0.0-2.0); RED CELL DISTRIBUTION WIDTH 13.6 % (11.5-14.5); WHITE BLOOD COUNT 7.4 K/uL (4.8-10.8)
[2017-02-19 20:58] LABS: CHLORIDE 103 mmol/L (98-107)
[2017-02-19 20:59] LABS: POTASSIUM 4.4 mmol/L (3.6-5.2); SODIUM 143 mmol/L (132-148)
[2017-02-19 21:01] LABS: AST/SGOT 22 U/L (17-59); BILIRUBIN,TOTAL 0.4 mg/dL (0.2-1.3); CARBON DIOXIDE 25 mmol/L (22-30); GFR AFRICAN-AMERICAN > 60
[2017-02-19 21:02] LABS: ALB/GLOB RATIO 1.2 (1.0-2.1); ALKALINE PHOSPHATASE 66 U/L (38-126); ALT/SGPT 29 U/L (21-72); BLOOD UREA NITROGEN 19 mg/dL (9-20); CALCIUM 9.8 mg/dl (8.6-10.4); GLUCOSE,RANDOM 95 mg/dL (75-110); TOTAL PROTEIN 7.9 g/dL (6.3-8.3)
[2017-02-19] MEDS ORDERED: Alum-Mag Hydrox-Simethicone Susp (30 mL) PO STA (21:25)
[2017-02-19] MEDS ORDERED: Alum-Mag Hydrox-Simethicone Susp (30 mL) ONE (21:37)
[2017-02-19 22:27] VITALS: BP 126/79; PULSE 85
[2017-02-19 22:42] VITALS: O2SAT 96
--- NOTE | 2017-02-20 08:02 | RAD ---
PROCEDURE: CHEST RADIOGRAPH, 1 VIEW HISTORY: abd pain COMPARISON: Portable chest 02/12/2017. FINDINGS: LUNGS: Clear. PLEURA: No pneumothorax or pleural fluid seen. CARDIOVASCULAR: Normal. OSSEOUS STRUCTURES: No significant abnormalities. VISUALIZED UPPER ABDOMEN: Normal. OTHER FINDINGS: None. IMPRESSION: No interval acute cardiopulmonary disease appreciated.
--- NOTE | 2017-02-21 15:41 | CARD ---
APPROVED REPORT EKG Measurement Heart [id number] <Conclusion> Normal sinus rhythm Minimal voltage criteria for LVH, may be normal variant Borderline ECG
== END 2017-02-19 22:26 | disposition home or self-care (01) ==
LOC: C.ER 19:09
DX: R10.84 Generalized abdominal pain (principal)
CPT/HCPCS: 71010; 80053; 83690; 84484; 85025; 96361; 96374; 96375; 99285; G0480; J2270; J2405; J7040

== ENCOUNTER 2017-06-13 13:59 | Emergency (ER) | payer MEDICARE ==
[2017-06-13 14:00] VITALS: BMI 18.1
[2017-06-13] MEDS ORDERED: Sodium Chloride 0.9% 500 ML IV ONE (14:28)
[2017-06-13] MEDS ORDERED: Morphine 4 MG/ML VIAL ONE ×3 (14:50→16:53)
[2017-06-13] MEDS ORDERED: Sodium Chloride 0.9% 1,000 ML ONE (14:50)
--- NOTE | 2017-06-13 14:55 | C.PDOC ---
History Of Present Illness 62 yr old male with PMhx of chronic pancreatitis, presents to the ER for evaluation of epigastric pain, radiating to suprapubic. Patient states the pain is consistent with previous episode of pancreatitis. Patient reports of multiple episodes of non bloody vomiting and diarrhea today. Patient denies fever, chills, chest pain, SOB, nausea, dysuria, hematuria, back pain, weakness or numbness. Time Seen by Provider: 06/13/17 14:14 Chief Complaint (Nursing): Chest Pain History Per: Patient History/Exam Limitations: no limitations Onset/Duration Of Symptoms: Days Current Symptoms Are (Timing): Still Present Past Medical History Reviewed: Historical Data, Nursing Documentation, Vital Signs Vital Signs: Last Vital Signs Temp 98.1 F 06/13/17 19:48 Pulse 70 06/13/17 19:48 Resp 18 06/13/17 19:48 BP 131/81 06/13/17 19:48 Pulse Ox 97 06/13/17 20:35 - Medical History PMH: Anxiety, Depression, HTN, Pancreatitis (Recurrent), Chronic Pain (abdominal ) - [facility] Procedures EXCISION OF DUODENUM, ENDO, DIAGN (02/12/17) EXCISION OF STOMACH, ENDO, DIAGN (02/12/17) INDIVID PSYCHOTHERAP NEC (11/12/12) INJECT/INFUSE NEC (07/12/14) INSERTION OF INFUSION DEV INTO SUP VENA CAVA, PERC APPROACH (07/12/16) OTHER GROUP THERAPY (11/12/12) Family History: States: No Known Family Hx - Social History Hx Alcohol Use: No Hx Substance Use: No - Immunization History Hx Tetanus Toxoid Vaccination: Yes Hx Influenza Vaccination: Yes Hx Pneumococcal Vaccination: Yes Review Of Systems Except As Marked, All Systems Reviewed And Found Negative. Constitutional: Negative for: Fever, Chills Cardiovascular: Negative for: Chest Pain Respiratory: Negative for: Shortness of Breath Gastrointestinal: Positive for: Vomiting, Abdominal Pain (epigastric radiating to suprapubic), Diarrhea. Negative for: Nausea Genitourinary: Negative for: Dysuria, Hematuria Musculoskeletal: Negative for: Back Pain Neurological: Negative for: Weakness, Numbness Physical Exam - Physical Exam Appears: Non-toxic, No Acute Distress Skin: Warm, Dry, No Rash Oral Mucosa: Moist Lips: Normal Appearing Throat: Normal, No Erythema, No Exudate Neck: Normal, Normal ROM, Supple Cardiovascular: Rhythm Regular, No Murmur Respiratory: Normal Breath Sounds, No Rales, No Rhonchi, No Stridor, No Wheezing Gastrointestinal/Abdominal: Soft, Tenderness (LLQ), No Guarding, No Rebound Back: Normal Inspection, No CVA Tenderness Extremity: Normal ROM, No Swelling Neurological/Psych: Oriented x3, Normal Speech, Normal Motor, Normal Sensation ED Course And Treatment - Laboratory Results Result Diagrams: 06/13/17 15:02 06/13/17 15:02 ECG: Interpreted By Me, Viewed By Me ECG Rhythm: Sinus Rhythm Interpretation Of ECG: Normal intervals. No ST/T changes. Rate From EC (BPM) O2 Sat by Pulse Oximetry: 97 (RA) Pulse Ox Interpretation: Normal - CT Scan/US CT - Abd & Pelvis Other Rad Studies (CT/US): Read By Radiologist, Radiology Report Reviewed Medical Decision Making Medical Decision Making: PLAN: * CT - Abd & Pelvis * EKG * CBCCMP * Morphine IVP * Pepcid IVP * Zofran IVP * Sodium Chloride IV CT abd/pel results: CT Scan ABD PELVIS W/O PO OR IV CONT Exam Date: 06/13/17 This imaging exam was performed at [facility] EXAM: CT Abdomen and Pelvis Without Intravenous Contrast EXAM DATE/TIME: 06/13/2017 2:28 PM CLINICAL HISTORY: 62 years old, male; Pain; Abdominal pain; Epigastric; Additional info: Abd pain TECHNIQUE: Axial computed tomography images of the abdomen and pelvis without intravenous contrast. All CT scans at this facility use one or more dose reduction techniques, viz.: automated exposure control; ma/kV adjustment per patient size (including targeted exams where dose is matched to indication; i.e. head); or iterative reconstruction technique. Coronal and sagittal reformatted images were created and reviewed. COMPARISON: Prior images are not available for review. FINDINGS: Lower thorax: Heart size is normal. There is atelectasis/scarring at the lung bases. There is a small hiatal hernia. ABDOMEN: Liver: There is a small calcification in the liver. Gallbladder and bile ducts: unremarkable Pancreas: There are tiny punctate calcifications in the pancreas. There are no pancreatic masses. There is no peripancreatic inflammation. Spleen: unremarkable Adrenals: There are fatty nodules in both adrenals. Right adrenal nodule measures approximately 2 cm. Left adrenal nodule measures approximately 1.8 cm. Kidneys and ureters: Kidneys are normal in size. There is contrast from a prior study in pelvicalyceal systems bilaterally.There is no pelvocaliectasis or ureterectasis. Stomach and bowel: Stomach is almost completely empty. Rotation is normal. There is no obstruction. Ileocecal region is unremarkable. Appendix and terminal ileum are unremarkable. Colon is incompletely distended which limits evaluation. There is scattered diverticulosis Appendix: See stomach and bowel PELVIS: Bladder: Bladder is distended. There is mild bladder wall thickening There is a contrast urine level. Reproductive: The prostate is enlarged.Seminal vesicles have the expected configuration. ABDOMEN and PELVIS: Intraperitoneal space: There is no free air or free fluid. Bones/joints: Bony structures are osteopenic. There are degenerative changes. Soft tissues: There is a very small fat containing umbilical hernia Vasculature: There are vascular calcifications. Lymph nodes: There is no pathologic adenopathy. IMPRESSION: Contrast from a prior study in renal collecting systems and bladder, no hydronephrosis; small punctate pancreatic calcifications, similar findings described in prior report; small bilateral adrenal nodules possibly myolipomas; mild bladder wall thickening possibly due to enlarged prostate; no CT findings of appendicitis or diverticulitis 8:43PM Patient feels better. He is tolerating po. Will dc Disposition - Disposition Referrals: Leobardo Banerjee MD [Staff Provider] - Disposition: HOME/ ROUTINE Disposition Time: 20:43 Condition: GOOD Additional Instructions: Follow-up with PMD within 2 days. Return to ED if condition worsens. Follow- up with urologist for enlarged prostate. Instructions: Pancreatitis (ED) Forms: [facility] (Greenlandic) - Clinical Impression Clinical Impression: Enlarged prostate, Pancreatitis - Scribe Statement The provider has reviewed the documentation as recorded by the Scribe Jody Hartmann Provider Attestation: All medical record entries made by the Scribe were at my direction and personally dictated by me. I have reviewed the chart and agree that the record accurately reflects my personal performance of the history, physical exam, medical decision making, and the department course for this patient. I have also personally directed, reviewed, and agree with the discharge instructions and disposition.
[2017-06-13 15:07] LABS: BASO # 0.1 K/uL (0.0-0.2); BASO % 1.1 % (0.0-2.0); EOS % 0.5 % (0.0-4.0); HEMOGLOBIN 15.1 g/dL (12.0-18.0); LYMPH # 1.5 K/uL (1.0-4.3); LYMPH % 22.4 % (20.0-40.0); MEAN CELL VOLUME 93.9 fL (80.0-94.0); MEAN CORPUSCULAR HEMOGLOBIN 33.1 pg (27.0-31.0); MEAN CORPUSCULAR HGB CONC 35.2 g/dL (33.0-37.0); MEAN PLATELET VOLUME 8.3 fL (7.2-11.7); MONO # 0.4 K/uL (0.0-0.8); MONO % 6.1 % (0.0-10.0); NEUT # 4.7 K/uL (1.8-7.0); NEUT % 69.9 % (50.0-75.0); RBC 4.55 Mil/uL (4.40-5.90); RED CELL DISTRIBUTION WIDTH 13.5 % (11.5-14.5); WHITE BLOOD COUNT 6.7 K/uL (4.8-10.8)
[2017-06-13 15:27] LABS: ALB/GLOB RATIO 1.5 (1.0-2.1); ALBUMIN 4.5 g/dL (3.5-5.0); CALCIUM 9.7 mg/dl (8.6-10.4); GFR AFRICAN-AMERICAN > 60; GFR NON-AFRICAN AMERICAN > 60; LIPASE 475 U/L (23-300)
[2017-06-13 15:32] LABS: ALT/SGPT 25 U/L (21-72); AST/SGOT 25 U/L (17-59); BLOOD UREA NITROGEN 18 mg/dL (9-20)
[2017-06-13] MEDS ORDERED: Iodixanol 320 mg/ml 150 ml Bottle IV ONE (16:53)
[2017-06-13 17:57] LABS: URINE BACTERIA RARE (<OCC); URINE BILIRUBIN NEGATIVE (NEGATIVE); URINE BLOOD NEGATIVE (NEGATIVE); URINE CLARITY Clear (Clear); URINE COLOR Straw (YELLOW); URINE GLUCOSE (UA) NORMAL (Normal); URINE LEUKOCYTE ESTERASE NEG Leu/uL (Negative); URINE NITRATE NEGATIVE (NEGATIVE); URINE PROTEIN NEGATIVE (NEGATIVE); URINE UROBILINOGEN NORMAL mg/dL (0.2-1.0)
[2017-06-13] MEDS ORDERED: HYDROmorphone 1 mg/ml ISec IVP STA (19:25)
--- NOTE | 2017-06-13 20:15 | CT ---
EXAM: CT Abdomen and Pelvis Without Intravenous Contrast EXAM DATE/TIME: 06/13/2017 2:28 PM CLINICAL HISTORY: 62 years old, male; Pain; Abdominal pain; Epigastric; Additional info: Abd pain TECHNIQUE: Axial computed tomography images of the abdomen and pelvis without intravenous contrast. All CT scans at this facility use one or more dose reduction techniques, viz.: automated exposure control; ma/kV adjustment per patient size (including targeted exams where dose is matched to indication; i.e. head); or iterative reconstruction technique. Coronal and sagittal reformatted images were created and reviewed. COMPARISON: Prior images are not available for review. FINDINGS: Lower thorax: Heart size is normal. There is atelectasis/scarring at the lung bases. There is a small hiatal hernia. ABDOMEN: Liver: There is a small calcification in the liver. Gallbladder and bile ducts: unremarkable Pancreas: There are tiny punctate calcifications in the pancreas. There are no pancreatic masses. There is no peripancreatic inflammation. Spleen: unremarkable Adrenals: There are fatty nodules in both adrenals. Right adrenal nodule measures approximately 2 cm. Left adrenal nodule measures approximately 1.8 cm. Kidneys and ureters: Kidneys are normal in size. There is contrast from a prior study in pelvicalyceal systems bilaterally.There is no pelvocaliectasis or ureterectasis. Stomach and bowel: Stomach is almost completely empty. Rotation is normal. There is no obstruction. Ileocecal region is unremarkable. Appendix and terminal ileum are unremarkable. Colon is incompletely distended which limits evaluation. There is scattered diverticulosis Appendix: See stomach and bowel PELVIS: Bladder: Bladder is distended. There is mild bladder wall thickening There is a contrast urine level. Reproductive: The prostate is enlarged.Seminal vesicles have the expected configuration. ABDOMEN and PELVIS: Intraperitoneal space: There is no free air or free fluid. Bones/joints: Bony structures are osteopenic. There are degenerative changes. Soft tissues: There is a very small fat containing umbilical hernia Vasculature: There are vascular calcifications. Lymph nodes: There is no pathologic adenopathy. IMPRESSION: Contrast from a prior study in renal collecting systems and bladder, no hydronephrosis; small punctate pancreatic calcifications, similar findings described in prior report; small bilateral adrenal nodules possibly myolipomas; mild bladder wall thickening possibly due to enlarged prostate; no CT findings of appendicitis or diverticulitis Additional nonemergent findings as described above.
[2017-06-13] MEDS ORDERED: Oxycodone/Acetaminophen 5/325 mg Tab PO STA (20:44)
[2017-06-13] MEDS ORDERED: Oxycodone/Acetaminophen 5/325 mg Tab ONE (20:49)
--- NOTE | 2017-06-13 20:50 | CARD ---
APPROVED REPORT EKG Measurement Heart [id number] <Conclusion> Normal sinus rhythm Normal ECG
[2017-06-13 20:55] VITALS: BP 128/77; PULSE 77; RESP 20; TEMP 98; O2SAT 98
== END 2017-06-13 20:55 | disposition home or self-care (01) ==
LOC: C.ER 13:59
DX: N40.0 Benign prostatic hyperplasia without lower urinary tract symptoms (principal); K85.90 Acute pancreatitis without necrosis or infection, unspecified; I10 Essential (primary) hypertension
CPT/HCPCS: 74176; 80053; 81001; 83690; 85025; 87086; 93005; 96361; 96374; 96375; 96376; 99285; J1170; J2270; J2405; J2765; J7040; Q9967

== ENCOUNTER 2017-06-15 18:40 | Inpatient (IN) | payer MEDICARE ==
[2017-06-15 18:40] VITALS: BMI 18.1
[2017-06-15] MEDS ORDERED: Sodium Chloride 0.9% 500 ML IV ONE (19:12)
[2017-06-15] MEDS ORDERED: Sodium Chloride 0.9% 1,000 ML IV ONE (19:13)
[2017-06-15] MEDS ORDERED: Iohexol 240 (50 ml) PO ONE (19:14)
--- NOTE | 2017-06-15 19:23 | C.PDOC ---
History Of Present Illness 62 year old male presents to the ER with a complaint of abdominal pain for the past few days that has worsened today, associated with diarrhea and some nausea. Patient has a Hx of pancreatitis and was seen recently for abdominal pain. Denies ETOH intake, fever, or chills. Chief Complaint (Nursing): Abdominal Pain History Per: Patient History/Exam Limitations: no limitations Onset/Duration Of Symptoms: Days Current Symptoms Are (Timing): Still Present Location Of Pain/Discomfort: Diffuse Radiation Of Pain To:: None Associated Symptoms: Nausea, Diarrhea. denies: Fever, Chills Exacerbating Factors: None Alleviating Factors: None Recent travel outside of the [place]: No Past Medical History Reviewed: Historical Data, Nursing Documentation, Vital Signs Vital Signs: Last Vital Signs Temp 97.6 F 06/15/17 21:25 Pulse 61 06/15/17 21:25 Resp 18 06/15/17 21:25 BP 159/71 H 06/15/17 21:25 Pulse Ox 97 06/15/17 22:53 - Medical History PMH: Anxiety, Depression, HTN, Pancreatitis (Recurrent), Chronic Pain (abdominal ) - [facility] Procedures EXCISION OF DUODENUM, ENDO, DIAGN (02/12/17) EXCISION OF STOMACH, ENDO, DIAGN (02/12/17) INDIVID PSYCHOTHERAP NEC (11/12/12) INJECT/INFUSE NEC (07/12/14) INSERTION OF INFUSION DEV INTO SUP VENA CAVA, PERC APPROACH (07/12/16) OTHER GROUP THERAPY (11/12/12) Family History: States: Unknown Family Hx - Social History Hx Alcohol Use: No Hx Substance Use: No - Immunization History Hx Tetanus Toxoid Vaccination: Yes Hx Influenza Vaccination: Yes Hx Pneumococcal Vaccination: Yes Review Of Systems Constitutional: Negative for: Fever, Chills Cardiovascular: Negative for: Chest Pain, Palpitations Respiratory: Negative for: Shortness of Breath Gastrointestinal: Positive for: Nausea, Abdominal Pain, Diarrhea Physical Exam - Physical Exam Appears: Non-toxic, Other (Mild distress) Skin: Normal Color, Warm, Dry Head: Atraumatic, Normacephalic Eye(s): bilateral: Normal Inspection Oral Mucosa: Moist Chest: Symmetrical, No Tenderness Cardiovascular: Rhythm Regular Respiratory: Normal Breath Sounds, No Rales, No Rhonchi, No Wheezing Gastrointestinal/Abdominal: Soft, Tenderness (Nonspecific, generalized), No Mass , No Guarding, No Rebound Neurological/Psych: Oriented x3, Normal Speech, Other (No focal deficits) ED Course And Treatment - Laboratory Results Result Diagrams: 06/15/17 21:01 06/15/17 20:26 O2 Sat by Pulse Oximetry: 97 (Room air) Pulse Ox Interpretation: Normal Progress Note: CT abd/pel, blood work, and urinalysis ordered. Bentyl, toradol, zofran, and IV fluids administered. Disposition Discussed With : Dany Nguyen Doctor Will See Patient In The: Hospital Counseled Patient/Family Regarding: Diagnosis - Disposition Disposition: HOSPITALIZED Disposition Time: 22:50 Condition: STABLE Forms: [facility] (Romanian) - POA Present On Arrival: None - Clinical Impression Clinical Impression: Abdominal pain, Pancreatitis, acute - Scribe Statement The provider has reviewed the documentation as recorded by the Scribniurka Ramires All medical record entries made by the Scribe were at my direction and personally dictated by me. I have reviewed the chart and agree that the record accurately reflects my personal performance of the history, physical exam, medical decision making, and the department course for this patient. I have also personally directed, reviewed, and agree with the discharge instructions and disposition.
[2017-06-15] MEDS ORDERED: Iohexol 240 (50 ml) ONE (20:00)
[2017-06-15] MEDS ORDERED: Sodium Chloride 0.9% 1,000 ML ONE (20:01)
[2017-06-15 20:51] LABS: ALB/GLOB RATIO 1.2 (1.0-2.1); ALBUMIN 4.5 g/dL (3.5-5.0); ALT/SGPT 26 U/L (21-72); AST/SGOT 37 U/L (17-59); BLOOD UREA NITROGEN 15 mg/dL (9-20); CALCIUM 9.4 mg/dl (8.6-10.4); GFR AFRICAN-AMERICAN > 60; GFR NON-AFRICAN AMERICAN > 60; LIPASE 776 U/L (23-300)
[2017-06-15] MEDS ORDERED: Morphine 4 MG/ML VIAL ONE ×2 (21:01→22:08)
[2017-06-15 21:04] LABS: BASO % 0.5 % (0.0-2.0); EOS % 0.4 % (0.0-4.0); HEMOGLOBIN 13.4 g/dL (12.0-18.0); LYMPH # 1.5 K/uL (1.0-4.3); LYMPH % 15.7 % (20.0-40.0); MEAN CELL VOLUME 95.5 fL (80.0-94.0); MEAN CORPUSCULAR HEMOGLOBIN 32.2 pg (27.0-31.0); MEAN CORPUSCULAR HGB CONC 33.8 g/dL (33.0-37.0); MEAN PLATELET VOLUME 7.8 fL (7.2-11.7); MONO # 0.7 K/uL (0.0-0.8); MONO % 7.2 % (0.0-10.0); NEUT # 7.1 K/uL (1.8-7.0); NEUT % 76.2 % (50.0-75.0); RBC 4.16 Mil/uL (4.40-5.90); RED CELL DISTRIBUTION WIDTH 13.3 % (11.5-14.5); WHITE BLOOD COUNT 9.3 K/uL (4.8-10.8)
[2017-06-15] MEDS ORDERED: Iodixanol 320 MG/ML 100 ML BOTTLE IV ONE (21:33)
--- NOTE | 2017-06-15 21:42 | CP.CCUPN ---
CCU Objective - Vital Signs / Intake & Output Vital Signs (Last 4 hours): Vital Signs Temp Pulse Resp BP Pulse Ox 06/15/17 21:25 97.6 F 61 18 159/71 H 98 06/15/17 19:30 97 06/15/17 18:47 89 20 137/83 97 Intake and Output (Last 8hrs): Intake & Output 06/15/17 06/15/17 06/15/17 06:59 14:59 22:59 Weight 130 lb - Medications Active Medications: Active Medications Generic Name Dose Route Start Last Admin Trade Name Freq PRN Reason Stop Dose Admin Sodium Chloride 1,000 mls @ 100 mls/hr 06/15/17 19:13 06/15/17 21:02 Sodium Chloride 0.9% IV 06/16/17 05:12 100 mls/hr .Q10H ONE Administration - Patient Studies Lab Studies: Lab Studies 06/15/17 06/15/17 Range/Units 21:01 20:26 WBC 9.3 (4.8-10.8) K/uL RBC 4.16 L (4.40-5.90) Mil/uL Hgb 13.4 (12.0-18.0) g/dL Hct 39.7 (35.0-51.0) % MCV 95.5 H (80.0-94.0) fL MCH 32.2 H (27.0-31.0) pg MCHC 33.8 (33.0-37.0) g/dL RDW 13.3 (11.5-14.5) % Plt Count 206 (130-400) K/uL MPV 7.8 (7.2-11.7) fL Neut % (Auto) 76.2 H (50.0-75.0) % Lymph % (Auto) 15.7 L (20.0-40.0) % [place] % (Auto) 7.2 (0.0-10.0) % Eos % (Auto) 0.4 (0.0-4.0) % Baso % (Auto) 0.5 (0.0-2.0) % Neut # 7.1 H (1.8-7.0) K/uL Lymph # 1.5 (1.0-4.3) K/uL [place] # 0.7 (0.0-0.8) K/uL Eos # 0.0 (0.0-0.7) K/uL Baso # 0.0 (0.0-0.2) K/uL Sodium 135 (132-148) mmol/L Potassium 4.9 (3.6-5.2) mmol/L Chloride 101 (98-107) mmol/L Carbon Dioxide 23 (22-30) mmol/L Anion Gap 15 (10-20) BUN 15 (9-20) mg/dL Creatinine 0.7 L (0.8-1.5) mg/dL Est GFR ( Amer) > 60 Est GFR (Non-Af Amer) > 60 Random Glucose 89 (75-110) mg/dL Calcium 9.4 (8.6-10.4) mg/dl Total Bilirubin 0.8 (0.2-1.3) mg/dL AST 37 (17-59) U/L ALT 26 (21-72) U/L Alkaline Phosphatase 69 (38-126) U/L Total Protein 8.1 (6.3-8.3) g/dL Albumin 4.5 (3.5-5.0) g/dL Globulin 3.7 (2.2-3.9) gm/dL Albumin/Globulin Ratio 1.2 (1.0-2.1) Lipase 776 H (23-300) U/L Alcohol, Quantitative < 10 (0-10) mg/dl Laboratory Results - last 24 hr 06/15/17 06/15/17 20:26 21:01 WBC 9.3 RBC 4.16 L Hgb 13.4 Hct 39.7 MCV 95.5 H MCH 32.2 H MCHC 33.8 RDW 13.3 Plt Count 206 MPV 7.8 Neut % (Auto) 76.2 H Lymph % (Auto) 15.7 L [place] % (Auto) 7.2 Eos % (Auto) 0.4 Baso % (Auto) 0.5 Neut # 7.1 H Lymph # 1.5 [place] # 0.7 Eos # 0.0 Baso # 0.0 Sodium 135 Potassium 4.9 Chloride 101 Carbon Dioxide 23 Anion Gap 15 BUN 15 Creatinine 0.7 L Est GFR ( Amer) > 60 Est GFR (Non-Af Amer) > 60 Random Glucose 89 Calcium 9.4 Total Bilirubin 0.8 AST 37 ALT 26 Alkaline Phosphatase 69 Total Protein 8.1 Albumin 4.5 Globulin 3.7 Albumin/Globulin Ratio 1.2 Lipase 776 H Alcohol, Quantitative < 10
[2017-06-15 22:30] LABS: URINE BILIRUBIN NEGATIVE (NEGATIVE); URINE BLOOD NEGATIVE (NEGATIVE); URINE CLARITY Clear (Clear); URINE COLOR Straw (YELLOW); URINE GLUCOSE (UA) NORMAL (Normal); URINE LEUKOCYTE ESTERASE NEG Leu/uL (Negative); URINE NITRATE NEGATIVE (NEGATIVE); URINE PROTEIN NEGATIVE (NEGATIVE); URINE UROBILINOGEN NORMAL mg/dL (0.2-1.0)
[2017-06-15 22:42] LABS: BARBITURATES, UR NEGATIVE (NEGATIVE); PHENCYCLIDINE, UR NEGATIVE (NEGATIVE)
--- NOTE | 2017-06-15 22:42 | CT ---
EXAM: CT Abdomen and Pelvis With Intravenous Contrast EXAM DATE/TIME: 06/15/2017 7:12 PM CLINICAL HISTORY: 62 years old, male; Pain; Abdominal pain; Generalized; Additional info: Abd pain TECHNIQUE: Axial computed tomography images of the abdomen and pelvis with intravenous contrast. All CT scans at this facility use one or more dose reduction techniques, viz.: automated exposure control; ma/kV adjustment per patient size (including targeted exams where dose is matched to indication; i.e. head); or iterative reconstruction technique. Coronal and sagittal reformatted images were created and reviewed. CONTRAST: 100 mL of [id number] administered intravenously. COMPARISON: CT - ABD PELVIS IV CONTRAST ONLY 2017-06-13 18:11 FINDINGS: Lower thorax: Heart size is normal. There is thickening of the wall. The Lung bases are clear. There is minimal pleural scarring at the left base. ABDOMEN: Liver: There is fatty infiltration of the liver. Gallbladder and bile ducts: unremarkable Pancreas: There is mild prominence of pancreatic duct. No focal pancreatic lesions are identified. There are tiny calcifications in the pancreas, unchanged. Spleen: unremarkable Adrenals: There is thickening of both adrenals with nodules. Right adrenal nodule measures approximately 14 mm. Left adrenal nodule measures approximately 14 x 16 mm. Kidneys and ureters: unremarkable Stomach and bowel: Stomach is incompletely distended which accentuates the gastric wall. Bowel rotation is normal. Small bowel is mildly distended. There is no obstruction. There is oral contrast throughout the small bowel. Ileocecal region is unremarkable. Appendix and terminal ileum are unremarkable.There are fluid levels in the right colon.Colon is incompletely distended which limits evaluation.There is diverticulosis. Appendix: See stomach and bowel PELVIS: Bladder: Bladder is distended. Reproductive: Unremarkable ABDOMEN and PELVIS: Intraperitoneal space: Clips seminal vesicles and prostateThere is no free air or free fluid. Bones/joints: There are degenerative changes in the osseus structures. Soft tissues: unremarkable Vasculature: There are vascular calcifications. Lymph nodes: There is no pathologic adenopathy. IMPRESSION: No acute solid visceral abnormality, fatty liver and adrenal nodules similar to that seen on the prior study; no CT findings of appendicitis or diverticulitis; no bowel obstruction; mild thickening of the distal esophagus the gastroesophageal junction Additional nonemergent findings as described above.
[2017-06-15 23:12] LABS: BENZODIAZEPINES, UR POSITIVE (NEGATIVE); OPIATES, UR POSITIVE (NEGATIVE)
[2017-06-15] MEDS ORDERED: HYDROmorphone 1 mg/ml ISec IVP PRN (23:35)
[2017-06-16] MEDS: Sodium Chloride 0.9% 1,000 ML IV SCH ×3 (00:06→10:13)
[2017-06-16 08:26] LABS: BASO # 0.1 K/uL (0.0-0.2); BASO % 1.1 % (0.0-2.0); EOS # 0.1 K/uL (0.0-0.7); EOS % 0.7 % (0.0-4.0); HEMOGLOBIN 12.7 g/dL (12.0-18.0); LYMPH % 24.9 % (20.0-40.0); MEAN CORPUSCULAR HEMOGLOBIN 32.1 pg (27.0-31.0); MEAN CORPUSCULAR HGB CONC 33.8 g/dL (33.0-37.0); MEAN PLATELET VOLUME 8.1 fL (7.2-11.7); MONO # 0.5 K/uL (0.0-0.8); MONO % 6.6 % (0.0-10.0); NEUT # 5.3 K/uL (1.8-7.0); NEUT % 66.7 % (50.0-75.0); RBC 3.96 Mil/uL (4.40-5.90); RED CELL DISTRIBUTION WIDTH 13.6 % (11.5-14.5)
[2017-06-16 08:52] LABS: ALB/GLOB RATIO 1.4 (1.0-2.1); ALBUMIN 3.8 g/dL (3.5-5.0); ALT/SGPT 27 U/L (21-72); AST/SGOT 24 U/L (17-59); BLOOD UREA NITROGEN 15 mg/dL (9-20); GFR AFRICAN-AMERICAN > 60; GFR NON-AFRICAN AMERICAN > 60; HDL CHOLESTEROL 35 mg/dL (30-70)
[2017-06-16 09:00] LABS: LDL CHOLESTEROL 88 mg/dL (0-129)
[2017-06-16 09:22] VITALS: RESP 20
[2017-06-16 09:35] LABS: LIPASE 3326 U/L (23-300)
[2017-06-16] MEDS ORDERED: Dextrose 5%/0.9% NS 1,000 ML IV ONE (15:41)
--- NOTE | 2017-06-16 22:40 | CP.PCM.HP ---
Past Patient History - Infectious Disease Hx of Infectious Diseases: None - Past Medical History & Family History Past Medical History?: Yes - Past Social History Smoking Status: Light Smoker < 10 Cigarettes Daily - CARDIAC Hx Hypertension: Yes - PULMONARY Hx Respiratory Disorders: No - NEUROLOGICAL Hx Neurological Disorder: No - HEENT Hx HEENT Problems: No - RENAL Hx Chronic Kidney Disease: No - ENDOCRINE/METABOLIC Hx Endocrine Disorders: No - HEMATOLOGICAL/ONCOLOGICAL Hx Human Immunodeficiency Virus (HIV): No - INTEGUMENTARY Hx Dermatological Problems: No - MUSCULOSKELETAL/RHEUMATOLOGICAL Hx Falls: No - GASTROINTESTINAL Hx Pancreatitis: Yes (Recurrent) - GENITOURINARY/GYNECOLOGICAL Hx Genitourinary Disorders: No - PSYCHIATRIC Hx Anxiety: Yes Hx Depression: Yes Hx Substance Use: No - SURGICAL HISTORY Hx Surgeries: No - ANESTHESIA Hx Anesthesia: No Hx Anesthesia Reactions: No Hx Malignant Hyperthermia: No Meds Allergies/Adverse Reactions: Allergies Allergy/AdvReac Type Severity Reaction Status Date / Time No Known Allergies Allergy Verified 06/15/17 18:50 Results - Vital Signs Recent Vital Signs: Last Vital Signs Temp 97.9 F 06/16/17 16:00 Pulse 72 06/16/17 16:00 Resp 20 06/16/17 16:00 BP 101/64 06/16/17 16:00 Pulse Ox 95 06/16/17 16:00 - Labs Result Diagrams: 06/16/17 08:16 06/16/17 08:16 Labs: Laboratory Results - last 24 hr 06/15/17 06/16/17 06/16/17 22:21 08:16 08:16 WBC 8.0 RBC 3.96 L Hgb 12.7 Hct 37.6 MCV 95.0 H MCH 32.1 H MCHC 33.8 RDW 13.6 Plt Count 212 MPV 8.1 Neut % (Auto) 66.7 Lymph % (Auto) 24.9 [place] % (Auto) 6.6 Eos % (Auto) 0.7 Baso % (Auto) 1.1 Neut # 5.3 Lymph # 2.0 [place] # 0.5 Eos # 0.1 Baso # 0.1 Sodium 135 Potassium 4.2 Chloride 106 Carbon Dioxide 20 L Anion Gap 13 BUN 15 Creatinine 0.9 Est GFR ( Amer) > 60 Est GFR (Non-Af Amer) > 60 Random Glucose 70 L Calcium 8.0 L Total Bilirubin 0.6 AST 24 ALT 27 Alkaline Phosphatase 73 Lactate Dehydrogenase 497 Total Protein 6.5 Albumin 3.8 Globulin 2.7 Albumin/Globulin Ratio 1.4 Triglycerides 54 D Cholesterol 133 LDL Cholesterol Direct 88 HDL Cholesterol 35 Lipase 3326 H Urine Opiates Screen Positive H Urine Methadone Screen Negative Ur Barbiturates Screen Negative Ur Phencyclidine Scrn Negative Ur Amphetamines Screen Negative U Benzodiazepines Scrn Positive U Oth Cocaine Metabols Negative U Cannabinoids Screen Negative
[2017-06-17 08:14] VITALS: BP 112/66; PULSE 81; TEMP 98.4; O2SAT 97
[2017-06-17] MEDS ORDERED: Dextrose 5%/0.45% NS 1,000 ML IV SCH (09:15)
[2017-06-17 14:05] LABS: BASO % 0.5 % (0.0-2.0); EOS % 0.5 % (0.0-4.0); HEMOGLOBIN 11.3 g/dL (12.0-18.0); LYMPH # 1.2 K/uL (1.0-4.3); LYMPH % 12.8 % (20.0-40.0); MEAN CELL VOLUME 95.2 fL (80.0-94.0); MEAN CORPUSCULAR HEMOGLOBIN 32.1 pg (27.0-31.0); MEAN CORPUSCULAR HGB CONC 33.8 g/dL (33.0-37.0); MEAN PLATELET VOLUME 8.2 fL (7.2-11.7); MONO # 0.7 K/uL (0.0-0.8); MONO % 6.9 % (0.0-10.0); NEUT # 7.5 K/uL (1.8-7.0); NEUT % 79.3 % (50.0-75.0); NRBC % 0.1 % (0.0-2.0); RBC 3.53 Mil/uL (4.40-5.90); RED CELL DISTRIBUTION WIDTH 13.3 % (11.5-14.5); WHITE BLOOD COUNT 9.4 K/uL (4.8-10.8)
[2017-06-17 14:25] LABS: ALB/GLOB RATIO 1.4 (1.0-2.1); ALBUMIN 3.5 g/dL (3.5-5.0); ALT/SGPT 25 U/L (21-72); AST/SGOT 25 U/L (17-59); BLOOD UREA NITROGEN 10 mg/dL (9-20); CALCIUM 8.3 mg/dl (8.6-10.4); GFR AFRICAN-AMERICAN > 60; GFR NON-AFRICAN AMERICAN > 60
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
--- NOTE | 2017-06-18 18:41 | CP.PCM.DIS ---
Provider - Provider Date of Admission: 06/15/17 22:55 Attending physician: Dany Nguyen MD Time Spent in preparation of Discharge (in minutes): 20 Hospital Course - Lab Results Lab Results: Most Recent Lab Values WBC 9.4 K/uL (4.8-10.8) 06/17/17 13:57 RBC 3.53 Mil/uL (4.40-5.90) L 06/17/17 13:57 Hgb 11.3 g/dL (12.0-18.0) L 06/17/17 13:57 Hct 33.6 % (35.0-51.0) L 06/17/17 13:57 MCV 95.2 fL (80.0-94.0) H 06/17/17 13:57 MCH 32.1 pg (27.0-31.0) H 06/17/17 13:57 MCHC 33.8 g/dL (33.0-37.0) 06/17/17 13:57 RDW 13.3 % (11.5-14.5) 06/17/17 13:57 Plt Count 184 K/uL (130-400) 06/17/17 13:57 MPV 8.2 fL (7.2-11.7) 06/17/17 13:57 Neut % (Auto) 79.3 % (50.0-75.0) H 06/17/17 13:57 Lymph % (Auto) 12.8 % (20.0-40.0) L 06/17/17 13:57 [place] % (Auto) 6.9 % (0.0-10.0) 06/17/17 13:57 Eos % (Auto) 0.5 % (0.0-4.0) 06/17/17 13:57 Baso % (Auto) 0.5 % (0.0-2.0) 06/17/17 13:57 Neut # 7.5 K/uL (1.8-7.0) H 06/17/17 13:57 Lymph # 1.2 K/uL (1.0-4.3) 06/17/17 13:57 [place] # 0.7 K/uL (0.0-0.8) 06/17/17 13:57 Eos # 0.0 K/uL (0.0-0.7) 06/17/17 13:57 Baso # 0.0 K/uL (0.0-0.2) 06/17/17 13:57 Sodium 130 mmol/L (132-148) L 06/17/17 13:57 Potassium 4.2 mmol/L (3.6-5.2) 06/17/17 13:57 Chloride 101 mmol/L (98-107) 06/17/17 13:57 Carbon Dioxide 25 mmol/L (22-30) 06/17/17 13:57 Anion Gap 8 (10-20) L 06/17/17 13:57 BUN 10 mg/dL (9-20) 06/17/17 13:57 Creatinine 0.7 mg/dL (0.8-1.5) L 06/17/17 13:57 Est GFR ( Amer) > 60 06/17/17 13:57 Est GFR (Non-Af Amer) > 60 06/17/17 13:57 Random Glucose 80 mg/dL (75-110) 06/17/17 13:57 Calcium 8.3 mg/dl (8.6-10.4) L 06/17/17 13:57 Total Bilirubin 0.6 mg/dL (0.2-1.3) 06/17/17 13:57 AST 25 U/L (17-59) 06/17/17 13:57 ALT 25 U/L (21-72) 06/17/17 13:57 Alkaline Phosphatase 58 U/L (38-126) 06/17/17 13:57 Lactate Dehydrogenase 497 U/L (313-618) 06/16/17 08:16 Total Protein 5.9 g/dL (6.3-8.3) L 06/17/17 13:57 Albumin 3.5 g/dL (3.5-5.0) 06/17/17 13:57 Globulin 2.4 gm/dL (2.2-3.9) 06/17/17 13:57 Albumin/Globulin Ratio 1.4 (1.0-2.1) 06/17/17 13:57 Triglycerides 54 mg/dL (0-149) D 06/16/17 08:16 Cholesterol 133 mg/dL (0-199) 06/16/17 08:16 LDL Cholesterol Direct 88 mg/dL (0-129) 06/16/17 08:16 HDL Cholesterol 35 mg/dL (30-70) 06/16/17 08:16 Lipase 172 U/L (23-300) 06/17/17 11:11 Urine Color Straw (YELLOW) 06/15/17 22:21 Urine Clarity Clear (Clear) 06/15/17 22:21 Urine pH 5.0 (5.0-8.0) 06/15/17 22:21 Ur Specific [place] 1.008 (1.003-1.030) 06/15/17 22:21 Urine Protein Negative mg/dL (NEGATIVE) 06/15/17 22:21 Urine Glucose (UA) Normal mg/dL (Normal) 06/15/17 22:21 Urine Ketones Negative mg/dL (NEGATIVE) 06/15/17 22:21 Urine Blood Negative (NEGATIVE) 06/15/17 22:21 Urine Nitrate Negative (NEGATIVE) 06/15/17 22:21 Urine Bilirubin Negative (NEGATIVE) 06/15/17 22:21 Urine Urobilinogen Normal mg/dL (0.2-1.0) 06/15/17 22:21 Ur Leukocyte Esterase Neg [place]/uL (Negative) 06/15/17 22:21 Urine WBC (Auto) < 1 /hpf (0-5) 06/15/17 22:21 Urine RBC (Auto) < 1 /hpf (0-3) 06/15/17 22:21 Urine Opiates Screen Positive (NEGATIVE) H 06/15/17 22:21 Urine Methadone Screen Negative (NEGATIVE) 06/15/17 22:21 Ur Barbiturates Screen Negative (NEGATIVE) 06/15/17 22:21 Ur Phencyclidine Scrn Negative (NEGATIVE) 06/15/17 22:21 Ur Amphetamines Screen Negative (NEGATIVE) 06/15/17 22:21 U Benzodiazepines Scrn Positive (NEGATIVE) 06/15/17 22:21 U Oth Cocaine Metabols Negative (NEGATIVE) 06/15/17 22:21 U Cannabinoids Screen Negative (NEGATIVE) 06/15/17 22:21 Alcohol, Quantitative < 10 mg/dl (0-10) 06/15/17 20:26 Discharge Plan - Follow Up Plan Condition: STABLE Disposition: AGAINST MEDICAL ADVICE
== END 2017-06-17 15:45 | disposition left against medical advice (07) | DRG 440 ==
LOC: C.ER 18:40 → C.9E 22:55 → C.3T 06-16 00:33
PROVIDERS: ADMIT Internal Medicine; ATTEND Internal Medicine
DX: K85.90 Acute pancreatitis without necrosis or infection, unspecified (principal); K86.1 Other chronic pancreatitis; I10 Essential (primary) hypertension; G89.29 Other chronic pain; F17.210 Nicotine dependence, cigarettes, uncomplicated

== ENCOUNTER 2017-06-27 14:31 | Emergency (ER) | payer MEDICARE ==
[2017-06-27 14:31] VITALS: BMI 18.1
[2017-06-27 14:41] VITALS: BP 163/77; RESP 20; TEMP 97.8; O2SAT 100
[2017-06-27] MEDS ORDERED: Sodium Chloride 0.9% 1,000 ML IV ONE (15:28)
[2017-06-27] MEDS ORDERED: Sodium Chloride 0.9% 1,000 ML ONE (15:34)
[2017-06-27 15:41] VITALS: PULSE 80
[2017-06-27 15:55] LABS: MEAN CELL VOLUME 94.3 fL (80.0-94.0); MEAN PLATELET VOLUME 7.5 fL (7.2-11.7); NRBC % 0.1 % (0.0-2.0)
[2017-06-27 15:58] LABS: BASO # 0.1 K/uL (0.0-0.2); EOS # 0.1 K/uL (0.0-0.7); EOS % 0.6 % (0.0-4.0); LYMPH # 1.8 K/uL (1.0-4.3); LYMPH % 16.6 % (20.0-40.0); MEAN CORPUSCULAR HEMOGLOBIN 32.5 pg (27.0-31.0); MEAN CORPUSCULAR HGB CONC 34.5 g/dL (33.0-37.0); MONO # 0.5 K/uL (0.0-0.8); MONO % 4.4 % (0.0-10.0); NEUT # 8.5 K/uL (1.8-7.0); NEUT % 77.4 % (50.0-75.0); RBC 4.29 Mil/uL (4.40-5.90); RED CELL DISTRIBUTION WIDTH 13.6 % (11.5-14.5); WHITE BLOOD COUNT 10.9 K/uL (4.8-10.8)
[2017-06-27 16:15] LABS: ALB/GLOB RATIO 1.3 (1.0-2.1); ALBUMIN 4.4 g/dL (3.5-5.0); ALT/SGPT 33 U/L (21-72); AST/SGOT 26 U/L (17-59); BLOOD UREA NITROGEN 14 mg/dL (9-20); CALCIUM 9.5 mg/dl (8.6-10.4); GFR AFRICAN-AMERICAN > 60; GFR NON-AFRICAN AMERICAN > 60; LIPASE 190 U/L (23-300)
--- NOTE | 2017-06-27 17:07 | RAD ---
HISTORY: chest pain COMPARISON: 02/19/2017 FINDINGS: LUNGS: No active pulmonary disease. Bilateral hyperaeration -similar -background COPD inferred PLEURA: No significant pleural effusion identified, no pneumothorax apparent. CARDIOVASCULAR: Normal. OSSEOUS STRUCTURES: No significant abnormalities. VISUALIZED UPPER ABDOMEN: Normal. OTHER FINDINGS: None. IMPRESSION: No active disease.
[2017-06-27] MEDS ORDERED: Acetaminophen-Codeine 300/30 mg Tab PO STA (17:17)
[2017-06-27] MEDS ORDERED: Acetaminophen-Codeine 300/30 mg Tab PO ONE (17:41)
--- NOTE | 2017-06-27 23:04 | C.PDOC ---
History Of Present Illness 62 y/o male presents to the ED for evaluation of epigsatric pain which began 2 days ago. Patient reports history of pancreatitis and states his current symptoms are similar to prior. He denies fever, chills, nausea, vomiting, chest lopez, shortness of breath, bloody stool/urine. Chief Complaint (Nursing): Chest Pain History Per: Patient History/Exam Limitations: no limitations Onset/Duration Of Symptoms: Days (2) Current Symptoms Are (Timing): Still Present Quality: "Pain" Additional History Per: Patient Past Medical History Reviewed: Historical Data, Nursing Documentation, Vital Signs Vital Signs: Last Vital Signs Temp 97.8 F 06/27/17 14:39 Pulse 80 06/27/17 15:25 Resp 20 06/27/17 18:33 BP 163/77 H 06/27/17 14:39 Pulse Ox 100 06/27/17 23:06 - Medical History PMH: Anxiety, Depression, HTN, Pancreatitis (Recurrent), Chronic Pain (abdominal ) Denies: HIV, Chronic Kidney Disease Surgical History: No Surg Hx - [facility] Procedures EXCISION OF DUODENUM, ENDO, DIAGN (02/12/17) EXCISION OF STOMACH, ENDO, DIAGN (02/12/17) INDIVID PSYCHOTHERAP NEC (11/12/12) INJECT/INFUSE NEC (07/12/14) INSERTION OF INFUSION DEV INTO L BASILIC VEIN, PERC APPROACH (06/15/17) INSERTION OF INFUSION DEV INTO SUP VENA CAVA, PERC APPROACH (07/12/16) OTHER GROUP THERAPY (11/12/12) Family History: States: Unknown Family Hx - Social History Hx Alcohol Use: No Hx Substance Use: No - Immunization History Hx Tetanus Toxoid Vaccination: Yes Hx Influenza Vaccination: Yes Hx Pneumococcal Vaccination: Yes Review Of Systems Constitutional: Negative for: Fever, Chills Cardiovascular: Negative for: Chest Pain Respiratory: Negative for: Shortness of Breath Gastrointestinal: Positive for: Abdominal Pain (epigastric ). Negative for: Nausea, Vomiting, Hematochezia Genitourinary: Negative for: Dysuria Physical Exam - Physical Exam Appears: Non-toxic, No Acute Distress Skin: Normal Color, Warm, Dry Head: Atraumatic, Normacephalic Eye(s): bilateral: Normal Inspection Oral Mucosa: Moist Neck: Supple Chest: Symmetrical, No Deformity, No Tenderness Cardiovascular: Rhythm Regular, No Murmur Respiratory: Normal Breath Sounds, No Rales, No Rhonchi, No Wheezing Gastrointestinal/Abdominal: Soft, Tenderness (epigastric ), No Guarding, No Rebound Extremity: Normal ROM, Capillary Refill (less than 2 seconds ) Neurological/Psych: Oriented x3, Normal Speech, Normal Cognition Gait: Steady ED Course And Treatment - Laboratory Results Result Diagrams: 06/27/17 15:52 06/27/17 15:52 O2 Sat by Pulse Oximetry: 100 (on RA) Pulse Ox Interpretation: Normal Medical Decision Making Medical Decision Making: Progres: Bloodwork, urinalysis, EKG, CXR ordered and reviewed. Pepcid IVP, Tylenol/Codeine PO, Zofran IVP, and IV Fluids administered. Disposition - Disposition Referrals: Jocelin Vazquez, [Non-Staff] - Disposition: HOME/ ROUTINE Disposition Time: 16:30 Condition: IMPROVED Additional Instructions: Thank you for letting us take care of you today. The emergency medical care you received today was directed at your acute symptoms. If you were prescribed any medication, please fill it and take as directed. It may take several days for your symptoms to resolve. Return to the Emergency Department if your symptoms worsen, do not improve, or if you have any other problems. Please contact your doctor or call one of the physicians/clinics you have been referred to that are listed on the Patient Visit Information form that is included in your discharge packet. Bring any paperwork you were given at discharge with you along with any medications you are taking to your follow up visit. Our treatment cannot replace ongoing medical care by a primary care provider (PCP) outside of the emergency department. Thank you for allowing the [facility] team to be part of your care today. Please follow up with your doctor in 2-3 days for re-evaluation and further management. Prescriptions: Acetaminophen with Codeine [Tylenol with Codeine #3 Tablet] 1 each PO Q6 PRN #1 tablet PRN Reason: Pain, Moderate (4-7) Esomeprazole Magnesium [Nexium 24Hr] 20 mg PO DAILY #14 capsule. Ranitidine HCl [Zantac] 150 mg PO BID #20 tablet Instructions: Gastritis (ED) Forms: [facility] (Congolese) - Clinical Impression Clinical Impression: Abdominal pain - Scribe Statement The provider has reviewed the documentation as recorded by the Scribe (Kathy Mancuso) Provider Attestation: All medical record entries made by the Scribe were at my direction and personally dictated by me. I have reviewed the chart and agree that the record accurately reflects my personal performance of the history, physical exam, medical decision making, and the department course for this patient. I have also personally directed, reviewed, and agree with the discharge instructions and disposition.
--- NOTE | 2017-06-29 15:16 | CARD ---
APPROVED REPORT EKG Measurement Heart [id number] <Conclusion> Normal sinus rhythm Right atrial enlargement Minimal voltage criteria for LVH, may be normal variant Borderline ECG
== END 2017-06-27 18:00 | disposition home or self-care (01) ==
LOC: C.ER 14:31
DX: R10.13 Epigastric pain (principal)
CPT/HCPCS: 71045; 80053; 83690; 84484; 85025; 96374; 96375; 99284; J2405; J7040